=== PATIENT | female | born 1980 | race Caucasian/White ===

== ENCOUNTER → 2018-08-04 17:01 | Outpatient (CLI) | payer OTHER, SELFPAY ==
[2018-08-08 10:17] LABS: HPV APTIMA, High Risk Negative (Negative)
== END ==
PROVIDERS: Family Provider Family Medicine; PCP Family Medicine; Referring Provider Nurse Practitioner Women's Health; Visit Provider Nurse Practitioner Women's Health
DX: Z12.4 Encounter for screening for malignant neoplasm of cervix (principal)
CPT/HCPCS: 88175; G0145

== ENCOUNTER → 2019-02-08 | Outpatient (CLI) | payer OTHER, SELFPAY ==
[2019-02-07 11:24] VITALS: BMI 25.0
== END | disposition home or self-care (01) ==
PROVIDERS: Family Provider Family Medicine; PCP Family Medicine; Referring Provider Physician Assistant; Visit Provider Physician Assistant
DX: J02.9 Acute pharyngitis, unspecified (principal)
CPT/HCPCS: 87081

== ENCOUNTER → 2019-11-24 15:38 | Outpatient (CLI) | payer OTHER, SELFPAY ==
[2019-02-07 11:24] VITALS: BMI 25.0
[2019-11-05 15:35] VITALS: BMI 25.1
--- NOTE | 2019-11-24 15:39 | BI_ITS ---
MAMMOGRAPHY - BILATERAL SCREENING REASON FOR EXAM: Female, 38 years old. Routine annual screening examination. PERTINENT HISTORY: Non-contributory. TECHNIQUE: Digital bilateral breast bobbi (3D mammographic acquisition) in the CC and MLO projections. 2-D mediolateral oblique (MLO) and craniocaudad (CC) views of both breasts were obtained. CAD: Full Field Digital Mammography with Computer Added Detection was performed. COMPARISON: None. Baseline examination. FINDINGS: Breast Composition: The breasts are heterogeneously dense, which may obscure small masses. There are no dominant masses or suspicious calcifications. Benign appearing bilateral axillary lymph nodes. No other significant abnormalities are identified. There has been no significant change since the prior study. BI/SCREEN MAMM (CAD) W/BOBBI BILAT IMPRESSION: Stable bilateral screening mammogram. Yearly follow-up mammogram recommended. (A) ASSESSMENT CATEGORY: BIRADS Category 2: Benign. A letter regarding these results will be sent to the patient by the facility within 30 days. Approximately 10% of breast cancers are not detected by mammography. A normal mammogram should not delay biopsy of a clinically suspicious abnormality. [id number] Electronically Signed: Gaurav Bautista, at 8:28 EST , Service support ,
== END ==
PROVIDERS: Family Provider Family Medicine; PCP Family Medicine; Referring Provider Obstetrics & Gynecology; Visit Provider Obstetrics & Gynecology
DX: Z12.31 Encounter for screening mammogram for malignant neoplasm of breast (principal)
CPT/HCPCS: 77063; 77067

== ENCOUNTER → 2020-01-11 16:37 | Outpatient (CLI) | payer OTHER, SELFPAY ==
[2019-11-05 15:35] VITALS: BMI 25.1
--- NOTE | 2020-01-11 16:42 | RAD_ITS ---
STUDY: X-RAY - PARANASAL SINUSES REASON FOR EXAM: Female, 39 years old. Sinusitis, headaches, cough, congestion x 2 months. TECHNIQUE: 3 view(s) of the paranasal sinuses were obtained. COMPARISON: None. FINDINGS: Normal visualized frontal, ethmoidal and sphenoid sinuses. Mild right maxillary sinus disease. Normal visualized facial bones. Normal soft tissue structures. RAD/Sinuses min 3 Views IMPRESSION: Mild right maxillary sinus disease Electronically Signed: Nicola Cuevas DO at 9:13 EDT Tel , Service support ,
== END ==
PROVIDERS: PCP Family Medicine; Referring Provider Family Medicine; Visit Provider Family Medicine
DX: J32.9 Chronic sinusitis, unspecified (principal)
CPT/HCPCS: 70220

== ENCOUNTER → 2020-02-10 13:24 | Outpatient (CLI) | payer OTHER, SELFPAY ==
[2019-11-05 15:35] VITALS: BMI 25.1
--- NOTE | 2020-02-10 13:28 | CT_ITS ---
STUDY: CT MAXILLOFACIAL SINUSES REASON FOR EXAM: Female, 39 years old. SINUSITIS RADIATION DOSAGE (If Supplied By Facility): CTDIvol = ( 33.06 ) mGy, DLP = ( 833.85 ) mGycm TECHNIQUE: The patient was scanned in a multi detector CT scanner. High resolution axial imaging was performed without the administration of intravenous contrast material. Sagittal and coronal images were reconstructed. Individualized dose optimization techniques were used for this CT. COMPARISON: None. FINDINGS: FRONTAL SINUSES: Normal aeration, without mucosal inflammatory disease. ETHMOIDAL SINUSES: Normal aeration, without mucosal inflammatory disease. MAXILLARY SINUSES: There is a 1.1 cm x 1.5 cm mucosal retention cyst or polyp at the base of the left maxillary sinus with a mild degree of left maxillary sinus thickening. SPHENOIDAL SINUSES: Normal aeration, without mucosal inflammatory disease. There is patency of the bilateral maxillary infundibuli with normal uncinate processes, ethmoid bullae, and hiatus semilunaris. Normal bilateral middle turbinates. Normal bilateral inferior turbinates. Normal midline nasal septum. There is patency of the bilateral nasal airways. The visualized osseous structures are normal. The visualized bilateral orbital contents are normal. CT/Sinus/Facial Bone IMPRESSION: 1.1 cm x 1.5 cm mucosal retention cyst at the base of the left maxillary sinus with a mild degree of left maxillary mucosal thickening. Electronically Signed: Gaurav Bautista, at 14:31 EDT , Service support ,
== END ==
PROVIDERS: PCP Family Medicine; Referring Provider Otolaryngology; Visit Provider Otolaryngology
DX: J32.9 Chronic sinusitis, unspecified (principal); R51 Headache
CPT/HCPCS: 70486

== ENCOUNTER → 2020-11-07 16:52 | Outpatient (CLI) | payer OTHER, SELFPAY ==
[2020-11-07 15:34] VITALS: BMI 26.2
== END ==
PROVIDERS: PCP Family Medicine; Visit Provider Obstetrics & Gynecology
DX: R30.0 Dysuria (principal)
CPT/HCPCS: 87086; 87088

== ENCOUNTER → 2020-11-28 15:31 | Outpatient (CLI) | payer OTHER, SELFPAY ==
[2019-11-05 15:35] VITALS: BMI 25.1
[2020-11-07 15:34] VITALS: BMI 26.2
--- NOTE | 2020-11-28 15:33 | BI_ITS ---
MAMMOGRAPHY - BILATERAL SCREENING REASON FOR EXAM: Female, 39 years old. Routine annual screening examination. PERTINENT HISTORY: Non-contributory. TECHNIQUE: Digital bilateral breast bobbi (3D mammographic acquisition) in the CC and MLO projections. 2-D mediolateral oblique (MLO) and craniocaudad (CC) views of both breasts were obtained. CAD: Full Field Digital Mammography with Computer Added Detection was performed. COMPARISON: Comparison is made with prior study dated 11/24/2019. FINDINGS: Breast Composition: The breasts are heterogeneously dense, which may obscure small masses. There are no dominant masses or suspicious calcifications. Stable benign-appearing bilateral axillary ligament. No other significant abnormalities are identified. There has been no significant change since the prior study. BI/SCRN MAMM (CAD)W/BOBBI BILAT IMPRESSION: Stable bilateral screening mammogram. Yearly follow-up mammogram recommended. (A) ASSESSMENT CATEGORY: BIRADS Category 2: Benign. A letter regarding these results will be sent to the patient by the facility within 30 days. Approximately 10% of breast cancers are not detected by mammography. A normal mammogram should not delay biopsy of a clinically suspicious abnormality. [id number] Electronically Signed: Gaurav Bautista MD at 8:38 EST , Service support ,
== END ==
PROVIDERS: PCP Family Medicine; Referring Provider Obstetrics & Gynecology; Visit Provider Obstetrics & Gynecology
DX: Z12.31 Encounter for screening mammogram for malignant neoplasm of breast (principal)
CPT/HCPCS: 77063; 77067

== ENCOUNTER 2021-11-30 17:27 | Outpatient (CLI) | payer OTHER, SELFPAY ==
[2021-12-05 21:00] LABS: HPV APTIMA, High Risk Negative (Negative)
== END 2021-11-30 23:59 | disposition short-term general hospital (02) ==
LOC: LABSPEC 17:27
PROVIDERS: PCP Family Medicine; Visit Provider Obstetrics & Gynecology
DX: Z12.4 Encounter for screening for malignant neoplasm of cervix (principal)
CPT/HCPCS: 87624; 88175; G0145

== ENCOUNTER 2022-10-01 22:51 | Emergency (ER) | payer OTHER, SELFPAY ==
[2022-10-01 22:51] VITALS: BP 114/63; PULSE 73; RESP 18; TEMP 36.8; O2SAT 98; BMI 24.0
--- NOTE | 2022-10-01 23:23 | EDS_ITS ---
HPI History of Present Illness Chief Complaint: Eye Problem Informant: patient and spouse/S.O. Onset/Context/Timing Location: Right Eye Onset: Today (JPTA) Context: Sudden Onset Timing: Continuous Current Severity: Mild Maximum Severity: Moderate Worsened by: nothing Relieved by: nothing Associated Symptoms Associated Symptoms - Eyes: Foreign body sensation and - (discomfort) History of injury: Yes and Direct trauma Visual correction: Corrective contact lenses Narrative Narrative: Patient presents after an injury to her eye. 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 She states it tore her soft contact lens, which she pulled out of her eye, and has very little discomfort subsequently, can see an obvious injury in the mirror to the nasal aspect of her sclera/conjunctivae, she denies any other injury or vision change but admits that her contact is out and her vision is very poor without it and she has no glasses with her. Last tetanus was about 8 years ago she estimates, definitely not sooner. 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 Smoking Status: Never smoker alcohol intake: current alcohol intake frequency: holidays/special occasions only substance use type: does not use caffeine: No what type of physical activity do you participate in: none seatbelt use: always do you feel safe at home: Yes 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 [employer] ROS ROS ED Constitutional Constitutional ED: Denies chills or fever(s) Eyes Eyes: Reports as per HPI and eye pain ENT ENT ED: Denies ear pain, rhinorrhea or sore throat Neurologic Neurologic: Denies headache(s), paresthesias or weakness EXAM Physical Exam Const Vital Signs: 10/01/22 22:51 Temperature 98.3 F Temperature Source Temporal Pulse Rate 73 Respiratory Rate 18 Blood Pressure 114/63 Blood Pressure Mean 80 Pulse Ox 98 Oxygen Delivery Method Room Air Positive well nourished and well developed General Appearance ED: well developed and NAD HEENT atraumatic; Negative for tenderness Mouth ED: Yes oral and palatal mucosa normal and Yes lips normal Mouth: oral and palatal mucosa normal and lips normal Eyes PERRL and EOMs intact bilaterally Eyes Narrative: There is an obvious small contusion with erythema/injection locally to the conjunctivae/sclera nasal to the right cornea, OD. No foreign body seen. Eyelid everted. Evaluated with slit-lamp and fluorescein dye: Cornea atraumatic without signs of dye uptake. Anterior chamber deep and quiet. No hyphema or hypopyon. The nasal conjunctive a/sclera shows very small amounts of fine mcqueen debris, maybe 3 or 4 punctate areas, none of it moves with gentle swabbing with a sterile cotton swab. Negative Eligio sign. Neuro oriented x3, CN's II-XII intact bilaterally and gait normal Sensorium / Orientation: alert Skin Lesions: no lesions Rashes: no rashes MDM MDM MDM Narrative Medical decision making narrative: Patient was given tetracaine and then Ruben lens followed by half liter irrigation. The slit-lamp exam documented above was performed after the thorough irrigation. There is no residual foreign material including the patient's contact lens or any pieces of it. We will place bacitracin/neomycin ophthalmic into the eye for infection prophylaxis, and instructions for use for the next 2 or 3 days and follow-up. 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 Her tetanus was also updated. Discharge Plan Triage Chief Complaint: Eye Problem ED Provider: Levon Bowman Dx/Rx/DC Orders Clinical Impression: Contusion of right conjunctiva, Immunization, tetanus-diphtheria Instructions: ED Eye Contusion Prescriptions: No Action Mirena 20 mcg/24 hours (6 yrs) 52 mg intrauterine device 1 insert intrauterine ONCE Rx Instructions: as a single dose Primary Care Provider: Magalys Adan Referrals: Magalys Adan MD [Primary Care Provider] - Doctor,Your [Non-Staff] - 2 Days (your telecommunications technician) Activity Restrictions/Additional Instructions: Use the antibiotic ointment thin ribbon to your right eye 3 times daily for the next 2 or 3 days. Disposition Disposition: Home, Self Care
[2022-10-01] MEDS: Diphth,Pertuss(Acell),Tet Vac 0.5 ML Vial IM (23:30)
[2022-10-01] MEDS: Fluorescein 1 MG STRIP 1 STRIP RIGHT EYE (23:30)
[2022-10-01] MEDS: Tetracaine 0.5% Ophthalmic Bottle 2 DRP RIGHT EYE (23:31)
[2022-10-02] MEDS: Neomycin/Bacitracin/Polymyxin Opth. Ointment 1 APPLIC RIGHT EYE (00:33)
== END 2022-10-02 00:35 | disposition home or self-care (01) ==
PROVIDERS: Emergency Provider Emergency Medicine; PCP Family Medicine; Visit Provider Emergency Medicine
DX: S05.11XA Contusion of eyeball and orbital tissues, right eye, initial encounter (principal); Z23 Encounter for immunization; X58.XXXA Exposure to other specified factors, initial encounter
CPT/HCPCS: 90715; 96372; 99284; J7030

== ENCOUNTER → 2022-12-12 | Outpatient (CLI) | payer OTHER, SELFPAY ==
--- NOTE | 2022-12-12 14:59 | BI_ITS ---
MAMMOGRAPHY - BILATERAL SCREENING REASON FOR EXAM: Female, 41 years old. Routine annual screening examination. PERTINENT HISTORY: Non-contributory. Remote left breast biopsy. TECHNIQUE: Digital bilateral breast bobbi (3D mammographic acquisition) in the CC and MLO projections. 2-D mediolateral oblique (MLO) and craniocaudad (CC) views of both breasts were obtained. CAD: Full Field Digital Mammography with Computer Added Detection was performed. COMPARISON: Comparison is made with prior examination dated 11/28/2020 and 11/24/2019. FINDINGS: Breast Composition: The breasts are heterogeneously dense, which may obscure small masses. There are no dominant masses or suspicious calcifications. Stable benign-appearing bilateral axillary lymph nodes. No other significant abnormalities are identified. There has been no significant change since the prior study. BI/SCRN MAMM (CAD)W/BOBBI BILAT IMPRESSION: Stable bilateral screening mammogram. Yearly follow-up mammogram recommended. (A) ASSESSMENT CATEGORY: BIRADS Category 2: Benign. A letter regarding these results will be sent to the patient by the facility within 30 days. Approximately 10% of breast cancers are not detected by mammography. A normal mammogram should not delay biopsy of a clinically suspicious abnormality. [id number] Electronically Signed: Gaurav Bautista MD at 15:43 EST ,
== END | disposition home or self-care (01) ==
LOC: OPBI 14:58
PROVIDERS: PCP Family Medicine; Referring Provider Obstetrics & Gynecology; Visit Provider Obstetrics & Gynecology
DX: Z12.31 Encounter for screening mammogram for malignant neoplasm of breast (principal)
CPT/HCPCS: 77063; 77067

== ENCOUNTER → 2023-07-01 | Outpatient (CLI) | payer OTHER, SELFPAY | END | disposition home or self-care (01) | PROVIDERS: PCP Family Medicine; Visit Provider Family Medicine | DX: N39.0 Urinary tract infection, site not specified (principal) | CPT/HCPCS: 87086 ==

== ENCOUNTER → 2023-08-02 | Outpatient (CLI) | payer OTHER, SELFPAY ==
[2023-08-02 11:15] LABS: Erythrocyte Sedimentation Rate 1 mm/hr (0-30)
[2023-08-02 11:42] LABS: CRP < 2.90 mg/L (0.0-3.0); Rheumatoid Factor < 10.0 IU/mL (<15)
[2023-08-05 13:07] LABS: ANTINUCLEAR ANTIBODIES DIRECT Negative (Negative)
== END | disposition home or self-care (01) ==
LOC: LAB 10:42
PROVIDERS: PCP Family Medicine; Referring Provider Family Medicine; Visit Provider Family Medicine
DX: M25.50 Pain in unspecified joint (principal)
CPT/HCPCS: 36415; 85652; 86038; 86140; 86431

== ENCOUNTER → 2023-12-30 | Outpatient (CLI) | payer OTHER, SELFPAY ==
--- NOTE | 2023-12-30 16:04 | RAD_ITS ---
INDICATION: cough EXAMINATION/TECHNIQUE: X-RAY - XR Chest 2 Views COMPARISON: None. FINDINGS: LINES/DEVICES: None. LUNGS: No pulmonary edema or focal airspace consolidation. No sizable pleural effusion. No pneumothorax detected. MEDIASTINUM AND CARDIOVASCULAR STRUCTURES: Heart size within normal limits. Mediastinal contours unremarkable. BONES AND SOFT TISSUES: No acute findings. RAD/Chest PA and Lateral IMPRESSION: No radiographic evidence of acute cardiopulmonary disease. Electronically Signed: Dominic Perez MD at 4:21 EST ,
== END | disposition home or self-care (01) ==
LOC: MTRAD 16:02
PROVIDERS: PCP Family Medicine; Referring Provider Family Medicine; Visit Provider Family Medicine
DX: R05.3 Chronic cough (principal)
CPT/HCPCS: 71046

== ENCOUNTER → 2023-12-31 | Outpatient (CLI) | payer OTHER, SELFPAY | END | disposition home or self-care (01) | LOC: LABSPEC 12:54 | PROVIDERS: PCP Family Medicine; Referring Provider Family Medicine; Visit Provider Family Medicine | DX: R05.3 Chronic cough (principal) | CPT/HCPCS: 87070; 87205 ==

== ENCOUNTER → 2024-03-20 | Outpatient (CLI) | payer OTHER, SELFPAY ==
[2024-03-20 17:41] LABS: Absolute Lymphocyte Count 2.05 X10^3/uL (0.83-4.51); Absolute Neutrophil Count 4.8 X10^3/uL (2.0-7.7); Basophil# 0.04 X10^3/uL; Basophil% 0.5 % (0-1); Eosinophil# 0.12 X10^3/uL; Eosinophils% 1.6 % (0-5); Hematocrit 41.5 % (37-47); Hemoglobin 13.5 g/dL (12.0-15.0); Lymphocyte # 2.05 X10^3/ul (0.83-4.51); Lymphocyte % 27.5 % (19-41); Mean Corp Hgb Conc 32.5 g/dL (32-36); Mean Corpuscular Hgb 26.6 pg (27.0-32.0); Mean Corpuscular Volume 81.9 fL (81-99); Mean Platelet Vol. 9.4 fl (6.2-12.0); Monocyte# 0.46 X10^3/uL; Monocyte% 6.2 % (0-10); NRBC Flagged by Analyzer 0 % (0-5); Neutrophil # 4.76 X10^3/uL (2.7-7.7); Neutrophil % 63.9 % (47-70); Platelet Count 303 K/mm3 (150-450); RBC Distribution Width SD 38.4 fl (35.1-43.9); Red Blood Count 5.07 M/mm3 (4.2-5.4); White Blood Count 7.5 K/mm3 (4.4-11.0)
[2024-03-20 18:02] LABS: AST(SGOT) 17 U/L (15-37); Alanine Aminotransfer ALT/SGPT 24 U/L (13-56); Albumin, Serum 3.8 g/dL (3.2-5.0); Alkaline Phosphatase 66 U/L (45-117); Anion Gap 5 (5-15); BUN 13 mg/dL (7-18); BUN/Creat Ratio 14.9 RATIO (10-20); Calcium,Total 9.2 mg/dL (8.5-10.1); Chloride 108 mmol/L (98-107); Creatinine, Serum 0.87 mg/dL (0.55-1.02); EST Glomerular Filtration Rate 75 mL/min (>60); Est Glom Filt Rate - Afr Amer 90 mL/min (>60); Glucose 105 mg/dL (74-106); Potassium 3.7 mmol/L (3.5-5.1); Protein, Total 7.8 g/dL (6.4-8.2); Sodium Level 140 mmol/L (136-145); Thyroid Stim Hormone (TSH) 1.55 uIU/mL (0.358-3.74)
== END | disposition home or self-care (01) ==
LOC: MTLAB 16:16
PROVIDERS: PCP Family Medicine; Referring Provider Family Medicine; Visit Provider Family Medicine
DX: L65.9 Nonscarring hair loss, unspecified (principal)
CPT/HCPCS: 80053; 82157; 82627; 84403; 84443; 85025; 82626

== ENCOUNTER → 2025-07-27 | Outpatient (CLI) | payer OTHER, SELFPAY ==
--- NOTE | 2025-07-27 14:45 | BI_ITS ---
EXAM: SCRN MAMM (CAD)W/BOBBI BILAT DATE: 07/27/2025 CLINICAL HISTORY: F, Age 44 y/o , SCREENING No family history. Remote left breast biopsy. TECHNIQUE: Procedure Code: [id number] Modality: MG Procedure: SCRN MAMM (CAD)W/BOBBI BILAT COMPARISON: Prior exam(s) dated December 12, 2022.. FINDINGS: TISSUE DENSITY: The breasts are heterogeneously dense, which may obscure small masses. Bilateral Breast Mammographic Findings: No significant masses, calcifications or other abnormalities are identified. Stable bilateral fat containing axillary lymph nodes. No suspicious masses, areas of developing architectural distortion, or suspicious calcifications. There has been no significant interval change. BI/SCRN MAMM (CAD)W/BOBBI BILAT IMPRESSION: Stable bilateral screening mammogram. OVERALL FINAL ASSESSMENT BI-RADS 2: BENIGN RECOMMENDATION: Routine annual follow-up in 1 Year Additional Recommendation none A letter with findings and recommendations will be mailed to the patient. Reading Location: [place] [id number]
== END | disposition home or self-care (01) ==
PROVIDERS: PCP Family Medicine; Referring Provider Nurse Practitioner Family; Visit Provider Nurse Practitioner Family
DX: Z12.31 Encounter for screening mammogram for malignant neoplasm of breast (principal)
CPT/HCPCS: 77063; 77067

== ENCOUNTER → 2025-08-26 | Outpatient (CLI) | payer OTHER, SELFPAY ==
[2025-08-27 18:08] LABS: Immunoglobulin A 183 mg/dL (87-352)
== END | disposition home or self-care (01) ==
LOC: LAB 11:02
PROVIDERS: PCP Family Medicine; Referring Provider Student in an Organized Health Care Education/Training Program; Visit Provider Student in an Organized Health Care Education/Training Program
DX: K21.9 Gastro-esophageal reflux disease without esophagitis (principal)
CPT/HCPCS: 36415; 82784; 83516; 86255

== ENCOUNTER 2025-08-31 05:30 | Day surgery (SDC) | payer OTHER, SELFPAY ==
[2025-08-31] VITALS (8 sets, daily range): BP systolic 84–106; BP diastolic 67–73; PULSE 78–94; RESP 16–18; TEMP 36.2–36.4; O2SAT 95–100; BMI 25.3
--- OUTSIDE RECORDS SUMMARY | 2025-08-31 05:34 | XMS RPT_ITS | CCD ---
Author Organization [facility] CliniSynm Care Team Providers Care Metal Sprayer Protective Coating Name Role Phone Dr. Magalys Adan Primary Care Provider Dr. Magalys Adan Referring Provider GUNNER Martinez Attending Provider Dr. Magalys Adan Primary Care Provider Dr. Magalys Adan Referring Provider GUNNER Martinez Attending Provider Dr. Mary Ellen Chavez Attending Provider [phone] Dr. Magalys Adan Primary Care Provider Dr. Magalys Adan Referring Provider Dr. Mary Ellen Chavez Attending Provider Dr. Chris Khoury MD Primary Care Physician Assessment, Health Risk Attending Physician Unav ailable Assessment, Health Risk Referring Provider Unava ilable Megan BILINGUAL CUSTOMER SERVICE SPECIALIST-C, Amy Attending Physician [phone] Megan BILINGUAL CUSTOMER SERVICE SPECIALIST-C, Amy Referring Provider Dr. Chris Khoury MD Referring Provider Qiana Melendez Attending Physician [phone] Qiana Camp Attending Unavailable Qiana Camp Referring Unavailable Chris Khoury Primary Care Unavailable Chris Khoury Primary Care Unavailable Assessment, Health Risk Attending Unavaila ble Assessment, Health Risk Referring Unavaila ble Chris Khoury Primary Care Unavailable Megan BILINGUAL CUSTOMER SERVICE SPECIALIST, Amy Attending Unavailable Megan BILINGUAL CUSTOMER SERVICE SPECIALIST, Amy Referring Unavailable Chris Khoury Primary Care Unavailable Chris Khoury Referring Unavailable Friend, Fadi Attending Unavailable Chris Khoury Primary Care Unavailable Chris Khoury Referring Unavailable Qiana Camp Attending Unavailable Allergies Allergy Classification Reported Allergen(s) Allergy Type Date of Onset Reaction(s) Facility (1 source) Gluten Drug allergy (disorder) 08-27-2025 [facility] Repository Medications Current Medications Medication Drug Class(es) Dates Sig (Normalized) Sig (Original) famotidine 20 mg oral tablet (2 sources) Histamine-2 Receptor Antagonist Start: 07-19-2025 take 1 tablet by mouth once daily Famotidine 20 mg tablet Active 20 mg PO daily July 19, 2025 12:00am Complies with drug therapy levonorgestrel 0.785711 mg/hr intrauterine system (8 sources) Progestin, Progestin-containi ng Intrauterine Device Start: 08-21-2021 Levonorgestrel (Mirena) 20 mcg/24 hours (6 yrs) 52 mg intrauterine device Active 1 NMA INTRA-UTER ONCE August 21, 2021 12:00am as a single dose Complies with drug therapy Start: 08-21-2021 Levonorgestrel (Mirena) 20 mcg/24 hours (6 yrs) 52 mg intrauterine device Active 1 INSERT INTRA-UTER ONCE August 20, 2021 11:00pm as a single dose polyethylene glycol 3350 408265 mg / potassium chloride 2970 mg / sodium bicarbonate 6740 mg / sodium chloride 5860 mg / sodium sulfate 69494 mg powder for oral solution (2 sources) Osmotic Laxative Start: 08-06-2025 Peg 3350-Elec trolytes (Golytely) 236-22.74-6.74 -5.86 gram recon soln Active 240 mL PO Q10M 4000 0 August 06, 2025 12:00am until fecal effluent is clear Complies with drug therapy Completed/Discontinued Medications Medication Drug Class(es) Dates Sig (Normalized) Sig (Original) acetaminophen 325 mg / oxyCODONE hydrochloride 5 mg oral tablet (8 sources) Opioid Agonist Start: 05-01-2015 End: 08-04-2018 Oxycodone-Acetamino phen 1 TABLET tablet Discontinued 2 {tbl} PO EVERY 4 HOURS NEEDED as needed for Moderate-Severe pain 15 0 May 01, 2015 12:00am August 04, 2018 3:21pm Start: 05-01-2015 End: 08-04-2018 take 2 tablets by mouth every four hours as needed Oxycodone-Acetaminophen Discontinued 2 TABLET PO EVERY 4 HOURS NEEDED April 30, 2015 11:00pm August 04, 2018 2:21pm cephalexin 500 mg oral capsule (6 sources) Cephalosporin Antibacterial Start: 01-12-2023 End: 01-22-2023 take 1 capsule by mouth twice daily at mealtime Cephalexin 500 mg capsule Discontinued 500 mg PO TWICE A DAY 20 10 0 January 12, 2023 1:00am January 21, 2023 12:00am January 22, 2023 12:04am strep take with food multivitamin capsule (6 sources) Start: 02-07-2019 End: 11-07-2020 take 1 capsule by mouth once daily multivitamin capsule Discontinued 1 CAP PO DAILY February 07, 2019 12:00am November 07, 2020 4:35pm Start: 02-07-2019 End: 11-07-2020 take 1 capsule by mouth once daily multivitamin capsule Discontinued 1 CAP PO DAILY February 06, 2019 11:00pm November 07, 2020 3:35pm Multivitamin capsule (2 sources) Start: 02-07-2019 End: 11-07-2020 Multivitamin capsule Discontinued 1 NMA PO DAILY February 07, 2019 12:00am November 07, 2020 4:35pm naproxen 250 mg oral tablet (8 sources) Nonsteroidal Anti-inflammatory Drug Start: 05-01-2015 End: 08-04-2018 take 250-500 mg by mouth every eight hours as needed for pain Naproxen 250 MG tablet Discontinued 250 - 500 mg PO EVERY 8 HOURS NEEDED as needed for MILD PAIN 30 0 May 01, 2015 12:00am August 04, 2018 3:21pm Vit,Michael 42-Evsf-Qbhtg 1 TABLET tablet (2 sources) Start: 12-30-2014 End: 08-04-2018 Vit,Michael 59-Fbwv-Uhhzh 1 TABLET tablet Discontinued 1 {tbl} PO DAILY December 30, 2014 1:00am August 04, 2018 3:21pm Vit,Sqmv02-Vcbk-Dvr ic (6 sources) Start: 12-30-2014 End: 08-04-2018 take 1 tablet by mouth once daily Vit,Ryua45-Fzbm-Be lic Discontinued 1 TABLET PO DAILY December 30, 2014 1:00am August 04, 2018 3:21pm Start: 12-30-2014 End: 08-04-2018 take 1 tablet by mouth once daily Vit,Ctyi95-Eetm-Wwvso Discontinued 1 TABLET PO DAILY December 30, 2014 12:00am August 04, 2018 2:21pm Problems Problem Classification Problem Date Documented Da te Episodic/Chronic Abdominal pain (8 sources) Abdominal pain; Translations: [Unspecified abdominal pain] 08-04-2018 Episodic Esophageal disorders (6 sources) Gastroesophageal reflux disease; Translations: [Gastro-esophageal reflux disease without esophagitis] Onset: 5 08-06-2025 Chronic Genitourinary symptoms and ill-defined conditions (8 sources) Asymptomatic microscopic hematuria; Translations: [Asymptomatic microscopic hematuria] 12-03-2022 Episodic Comment on above: await culture. if ne gative recommend urine cytology and ct abden/pelvis Immunizations and screening for infectious disease (8 sources) Requires tetanus and diphtheria vaccination; Translations: [Encounter for immunization] 10-10-2022 Episodic Other complications of (8 sources) Acute appendicitis; Translations: [Diseases of the digestive system complicating , unspecified trimester] 08-04-2018 Episodic Other gastrointestinal disorders (2 sources) Abdominal bloating; Translations: [Abdominal distension (gaseous)] 08-06-2025 Episodic Other screening for suspected conditions (not mental disorders or infectious disease) (3 sources) Patient encounter status; Translations: [Encounter for screening for malignant neoplasm of colon] Onset: 5 08-06-2025 Episodic Other upper respiratory infections (6 sources) Streptococcal sore throat; Translations: [Streptococcal pharyngitis] 01-12-2023 Episodic Superficial injury; contusion (8 sources) Contusion of ocular adnexa and periocular tissues; Translations: [Contusion of eyeball and orbital tissues, right eye, initial encounter] 10-10-2022 Episodic Results Test Name Value Interpretation Reference Range Facility Celiac Disease Profileon ENDOMYSIAL IGA Negative Normal Negative [facility] Comment on above: Performed By: #### L 3410.2400 #### [facility] [address] [place], [address] IMMUNOGLOB A QN 183 mg/dL Normal 87-352 [facility] Comment on above: Result Comment: Perf ormed at: CB - [facility] [address] [id number] Humanities Instructor: Waqas Curiel PhD, Phone: [phone] Performed By: #### L 3410.2400 #### [facility] [address] [place], [place], [address] tTG IGA <2 Normal 0-3 [facility] Comment on above: Result Comment: Nega tive 0 - 3 Weak Positive 4 - 10 Positive >10 Tissue Transglutaminase (tTG) has been identified as the endomysial antigen. Studies have demonstr- ated that endomysial IgA antibodies have over 99% specificity for gluten sensitive enteropathy. Performed By: #### L 3410.2400 #### [facility] [address] [place], [place], [address] Gastroenterology Visit Repor ton 08-06-2025 Gastroenterology Visit Report [facility] Gastroenterology [address] [facility] [place] [address] OFFICE VISIT Date of Service: 08/06/25 MR#: [id number] Acct: [id number] Name: MARA VAZ Rep #: [id number] : 1980 Provider: GUNNER Salmon Age/Sex: 44/F [place] [facility] Status: Signed Intake Vital Signs 12/12/23 15:33 Height 5 ft 4 in Intake Visit Reasons: possible egd Chief Complaint: Abdominal bloating Allergies No Known Allergies Allergy (Verified 08/06/25 14:15) Medications ???Medication ???Instructions ???Recorded ???Confirmed ???Type levonorgestrel (Mirena) 1 insert intrauterine ONCE 1 07/19/25 History famotidine 20 mg tablet 20 mg PO QDAY 07/19/25 07/19/25 Hi story peg 3350-electrolytes 236 240 ml PO Q10M #4,000 mL 08/06/25 08/06/25 Rx gram-22.74 gram-6.74 gram-5.86 gram solution (Golytely) PFSH Medical History GERD (gastroesophageal reflux disease) Has 2 children Surgical History H/O breast biopsy History of appendectomy Family History Father Bladder cancer Social History number of children: 2 current occupational status: employed 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 Patient here today for evaluation of her GI symptoms. Patient has heartburn, bloating and constipation. Symptoms started back in 2019 with heartburn and she was started on famotidine daily which helped however last summer her symptoms became worse. She has significant bloating after eating anything with gluten in it. For the most part she avoids all gluten containing foods. She has never been tested for celiac disease. Patient has had constipation since high school. She takes MiraLAX daily which allows her to have a bowel movement daily or every other day. If patient was not taking MiraLAX she thinks she may have a bowel movement once per week. She has never had a colonoscopy or EGD before. ROS Const Constitutional: No fatigue, fever(s) or weight change ENT ENT: No difficulty swallowing Gastro GI: Positive for abdominal pain, bloating, constipation and excessive flatus; No belching, change in bowel habits, change in stool character, coffee ground emesis, cramping, diarrhea, heartburn, difficulty swallowing, feeling full early, incontinent of stools, Vomiting blood/hematemesis, Blood in stool, loose stools, Black,tarry stools, nausea/dyspepsia, pain with swallowing, vomiting or other Musc Musculoskeletal: No joint pain Skin Skin: No yellowing of the eye or itchy eyes Psych Psychiatric: No anxiety and No depression Endo Endocrine: No fatigue or weight change Aller/Imm Allergy/Immunologic: No itchy eyes Jose/Lymp Hematologic/Lymphati c: No easy bleeding or easy bruising Exam Const General: cooperative, healthy appearing and comfortable Nutritional Appearance: average body habitus Orientation: alert HENMT Head: normal to inspection Ears: hearing grossly normal bilaterally Eyes General: appearance normal, both eyes and all related structures Neck Neck: normal visual inspection Chest Chest palpation inspection: normal inspection of the chest Resp Effort Inspection: normal respiratory effort Cardio Rate: regular rate Rhythm: regular rhythm GI Inspection: normal to inspection Auscultation: normal bowel sounds Palpation: soft and nontender Assessment and Plan Assessment and Plan (1) GERD (gastroesophageal reflux disease): Status: Acute Plan: Mara is a 44-year-old female patient here today for evaluation of bloating, heartburn and constipation. She has had heartburn since 2019 but it worsened last summer. She takes famotidine as needed for control of this but has never been on a PPI. Patient's bloating is typically associated with eating gluten. She eats mostly gluten-free diet at this point. Will order celiac panel and she will have EGD with biopsy. I did advise that she will need to eat gluten for either these tests to be accurate. Patient has had constipation since high school and takes MiraLAX daily. Patient has never had a screening colonoscopy and will be scheduled for this with her EGD. I have provided samples of Linzess 72 mcg daily for her to trial. If patient h (more content not included)... Normal [facility] Breast imaging reportOrdered By: Gaurav Bautista on 07-28-2025 Study report [facility] Imaging Services [address] [place], [place] [address] SCRN MAMM (CAD)W/BOBBI BILAT MR#: [id number] Acct: [id number] Name: MARA VAZ Rep #: [id number] : 1980 F 44 From: Mukesh Bautista MD PCP: Dr. Chris Khoury MD Status: BHARGAV GREENE Study:SCRN MAMM (CAD)W/BOBBI BILAT Date of Exa m: 07/27/25 Exam# [id number] Ordering Dr: Jennifer Guzman BILINGUAL CUSTOMER SERVICE SPECIALIST BILINGUAL CUSTOMER SERVICE SPECIALIST-C EXAM: SCRN MAMM (CAD)W/BOBBI BILAT DATE: 07/27/2025 CLINICAL HISTORY: F, Age 44 y/o , SCREENING No family history. Remote left breast biopsy. TECHNIQUE: Procedure Code: BISMWCADBTOM Modality: MG Procedure: SCRN MAMM (CAD)W/BOBBI BILAT COMPARISON: Prior exam(s) dated December 12, 2022.. FINDINGS: TISSUE DENSITY: The breasts are heterogeneously dense, which may obscure small masses. Bilateral Breast Mammographic Findings: No significant masses, calcifications or other abnormalities are identified. Stable bilateral fat containing axillary lymph nodes. No suspicious masses, areas of developing architectural distortion, or suspicious calcifications. There has been no significant interval change. BI/SCRN MAMM (CAD)W/BOBBI BILAT IMPRESSION: Stable bilateral screening mammogram. OVERALL FINAL ASSESSMENT BI-RADS 2: BENIGN RECOMMENDATION: Routine annual follow-up in 1 Year Additional Recommendation none A letter with findings and recommendations will be mailed to the patient. Reading Location: [place] [address] CC: BILINGUAL CUSTOMER SERVICE SPECIALIST-C Amy Guzman; Dr. Chris Khoury MD ~ Technical Business Analyst: Signed [facility] SCRN MAMM (CAD)W/BOBBI BILATo n 07-27-2025 SCRN MAMM (CAD)W/BOBBI BILAT [facility] Imaging Services [address] [place] [id number] SCRN MAMM (CAD)W/BOBBI BILAT MR#: [id number] Acct: [id number] Name: MARA VAZ Rep #: [id number] : 1980 F 44 From: Gaurav marshall MD PCP: Dr. Chris Khoury MD Status: REG CLI Study: SCRN MAMM (CAD)W/BOBBI BILAT Date of Exam: 07/06 01/26 Exam# [id number] Ordering Dr: Amy Guzman NP BILINGUAL CUSTOMER SERVICE SPECIALIST-C EXAM: SCRN MAMM (CAD)W/BOBBI BILAT DATE: 07/27/2025 CLINICAL HISTORY: F, Age 44 y/o , SCREENING No family history. Remote left breast biopsy. TECHNIQUE: Procedure Code: BISMWCADBTOM Modality: MG Procedure: SCRN MAMM (CAD)W/BOBBI BILAT COMPARISON: Prior exam(s) dated December 12, 2022.. FINDINGS: TISSUE DENSITY: The breasts are heterogeneously dense, which may obscure small masses. Bilateral Breast Mammographic Findings: No significant masses, calcifications or other abnormalities are identified. Stable bilateral fat containing axillary lymph nodes. No suspicious masses, areas of developing architectural distortion, or suspicious calcifications. There has been no significant interval change. BI/SCRN MAMM (CAD)W/BOBBI BILAT IMPRESSION: Stable bilateral screening mammogram. OVERALL FINAL ASSESSMENT BI-RADS 2: BENIGN RECOMMENDATION: Routine annual follow-up in 1 Year Additional Recommendation none A letter with findings and recommendations will be mailed to the patient. Reading Location: [place] [address] CC: ANAY Guzman; Dr. Chris Khoury MD Technical Business Analyst: Signed Normal [facility] Absolute lymphocyte countOrd ered By: HEALTH ASSESSMENT on 06-29-2025 Lymphocytes Auto (Unsp spec) [#/Vol] 2.05 10*3/uL 0.83-4.51 [facility] Absolute neutrophil countOrd ered By: HEALTH ASSESSMENT on 06-29-2025 Neutrophils (Bld) [#/Vol] 3.8 10*3/uL 2.0-7.7 [facility] Absolute nucleated red blood cell countOrdered By: HEALTH ASSESSMENT on 06-29-2025 Nucleated RBC (Bld) [#/Vol] 0.00 10*3/uL 0-5 [facility] Anion gap in Serum or Plasma Ordered By: HEALTH ASSESSMENT on 06-29-2025 Anion gap [Moles/Vol] 11 mmol/L 5-15 [facility] BUN/creatinine ratioOrdered By: HEALTH ASSESSMENT on 06-29-2025 Urea nitrogen/Creatinine [Mass ratio] 17.6 mg/mg 10-20 [facility] Bilirubin Test strip Ql (U)O rdered By: HEALTH ASSESSMENT on 06-29-2025 Bilirubin Ql (U) Negative Negative [facility] Bilirubin directOrdered By: HEALTH ASSESSMENT on 06-29-2025 Bilirubin.direct [Mass/Vol] 0.13 mg/dL 0.00-0.30 [facility] Bilirubin, totalOrdered By: HEALTH ASSESSMENT on 06-29-2025 Bilirubin [Mass/Vol] 0.30 mg/dL 0.00-1.30 [facility] CBC, Employeeon 06-29-2025 Absolute Lymph 2.05 X10 3/uL Normal 0.83-4.51 [facility] Comment on above: Performed By: #### L 100.0200, L400.0100, L500.2900 #### [facility] [address] [place], [address] Absolute Neut 3.8 X10 3/uL Normal 2.0-7.7 [facility] Comment on above: Performed By: #### L 100.0200, L400.0100, L500.2900 #### [facility] [address] [place], [address] Basophils/100 WBC (Bld) 0.6 % Normal 0-1 [facility] Comment on above: Performed By: #### L 100.0200, L400.0100, L500.2900 #### [facility] [address] [place], [address] Eosinophils/100 WBC (Bld) 2.6 % Normal 0-5 [facility] Comment on above: Performed By: #### L 100.0200, L400.0100, L500.2900 #### [facility] [address] [place], [address] Erythrocyte distribution width (RBC) [Ratio] 12.4 % Normal 11.6-14.6 [facility] Comment on above: Performed By: #### L 100.0200, L400.0100, L500.2900 #### [facility] [address] [place], [address] Hematocrit (Bld) [Volume fraction] 40.4 % Normal 37-47 [facility] Comment on above: Performed By: #### L 100.0200, L400.0100, L500.2900 #### [facility] [address] [place], [address] Hemoglobin (Bld) [Mass/Vol] 13.7 g/dL Normal 12.0-15.0 [facility] Comment on above: Performed By: #### L 100.0200, L400.0100, L500.2900 #### [facility] [address] [place], [address] Lymphocytes/100 WBC (Bld) 31.3 % Normal 19-41 [facility] Comment on above: Performed By: #### L 100.0200, L400.0100, L500.2900 #### [facility] [address] [place], [address] MCH (RBC) [Entitic mass] 28.7 pg Normal 27.0-32.0 [facility] Comment on above: Performed By: #### L 100.0200, L400.0100, L500.2900 #### [facility] [address] [place], [address] MCHC (RBC) [Mass/Vol] 33.9 g/dL Normal 32-36 [facility] Comment on above: Performed By: #### L 100.0200, L400.0100, L500.2900 #### [facility] [address] [place], [address] MCV (RBC) [Entitic vol] 84.7 fL Normal 81-99 [facility] Comment on above: Performed By: #### L 100.0200, L400.0100, L500.2900 #### [facility] [address] [place], [address] Monocytes/100 WBC (Bld) 7.2 % Normal 0-10 [facility] Comment on above: Performed By: #### L 100.0200, L400.0100, L500.2900 #### [facility] [address] [place], [address] Neutrophils/100 WBC (Bld) 57.8 % Normal 47-70 [facility] Comment on above: Performed By: #### L 100.0200, L400.0100, L500.2900 #### [facility] [address] [place], [address] NRBC # 0.00 10 3/uL Normal 0-5 [facility] Comment on above: Performed By: #### L 100.0200, L400.0100, L500.2900 #### [facility] [address] [place], [address] Nucleated RBC (Bld) [#/Vol] 0 10*3/uL Normal 0-5 [facility] Comment on above: Performed By: #### L 100.0200, L400.0100, L500.2900 #### [facility] [address] [place], [address] Platelet mean volume (Bld) [Entitic vol] 9.4 fL Normal 6.2-12.0 [facility] Comment on above: Performed By: #### L 100.0200, L400.0100, L500.2900 #### [facility] [address] [place], [address] Platelets (Bld) [#/Vol] 286 10*3/uL Normal 150-450 [facility] Comment on above: Performed By: #### L 100.0200, L400.0100, L500.2900 #### [facility] [address] [place], [address] RBC (Bld) [#/Vol] 4.77 10*6/uL Normal 4.2-5.4 [facility] Comment on above: Performed By: #### L 100.0200, L400.0100, L500.2900 #### [facility] [address] [place], [address] RDW SD 37.9 fl Normal 35.1-43.9 [facility] Comment on above: Performed By: #### L 100.0200, L400.0100, L500.2900 #### [facility] [address] [place], [address] WBC (Bld) [#/Vol] 6.5 10*3/uL Normal 4.4-11.0 [facility] Comment on above: Performed By: #### L 100.0200, L400.0100, L500.2900 #### [facility] [address] [place], [address] Calculated very low density lipoprotein (VLDL) cholesterol measurementOrdered By: HEALTH ASSESSMENT on 06-29-2025 Calculated very low density lipoprotein (VLDL) cholesterol measurement 14 mg/dL 5-40 [facility] Carbon dioxide, total [Moles /volume] in Central venous bloodOrdered By: HEALTH ASSESSMENT on 06-29-2025 CO2 [Moles/Vol] 25.2 mmol/L 21.0-32.0 [facility] Chloride assayOrdered By: HE ALTH ASSESSMENT on 06-29-2025 Chloride [Moles/Vol] 104 mmol/L 98-108 [facility] Employee Profileon LDH 194 U/L Normal 84-246 [facility] Comment on above: Result Comment: Hemo lysis present, Results??could be affected. ?? Performed By: #### L 100.0200, L400.0100, L500.2900 #### [facility] [address] [place], [address] Phosphate [Mass/Vol] 3.0 mg/dL Normal 2.7-4.5 [facility] Comment on above: Performed By: #### L 100.0200, L400.0100, L500.2900 #### [facility] [address] [place], [place], [address] URIC 4.0 mg/dL Normal 2.6-6.0 [facility] Comment on above: Result Comment: The drugs N-Acetylcysteine and Metamizole may falsely depress this assay. Performed By: #### L 100.0200, L400.0100, L500.2900 #### [facility] [address] [place], [place], [address] Erythrocyte distribution wid th ratioOrdered By: HEALTH ASSESSMENT on 06-29-2025 Erythrocyte distribution width (RBC) [Ratio] 12.4 % 11.6-14.6 [facility] Erythrocyte distribution wid th standard deviationOrdered By: HEALTH ASSESSMENT on 06-29-2025 Erythrocyte distribution width (RBC) [Ratio] 37.9 fl 35.1-43.9 [facility] Glomerular filtration rate ( GFR) estimation/1.73 sq m using serum, plasma, or whole bOrdered By: HEALTH ASSESSMENT on 06-29-2025 GFR/1.73 sq M.predicted among non-blacks MDRD (S/P/Bld) [Vol rate/Area] 109 mL/min/{1.73_m2} >60 [facility] Comment on above: mL/min/1.73m2 CKD-EP I Creatinine Equation (2020) Hematocrit Auto (Bld) [Volum e fraction]Ordered By: HEALTH ASSESSMENT on 06-29-2025 Hematocrit (Bld) [Volume fraction] 40.4 % 37-47 [facility] Hemoglobin measurementOrdere d By: HEALTH ASSESSMENT on 06-29-2025 Hemoglobin (Bld) [Mass/Vol] 13.7 g/dL 12.0-15.0 [facility] Ketones Test strip Ql (U)Ord ered By: HEALTH ASSESSMENT on 06-29-2025 Ketones Ql (U) Negative Negative [facility] LDL calc ser/plasOrdered By: HEALTH ASSESSMENT on 06-29-2025 Cholesterol in LDL [Mass/Vol] 105 mg/dL [facility] Comment on above: Kibghleyem=143-606 m g/dL & Higher Hczv=552 mg/dL or greaterFriedwald Equation for LDL-C Laboratory - Chemistry and C hemistry - challengeOrdered By: HEALTH ASSESSMENT on 06-29-2025 AST [Catalytic activity/Vol] 24 U/L <32 [facility] Lactate dehydrogenase (LDH) measurementOrdered By: HEALTH ASSESSMENT on 06-29-2025 LDH [Catalytic activity/Vol] 194 U/L 84-246 [facility] Comment on above: Hemolysis present, R esults could be affected. MCV (mean corpuscular volume ) determinationOrdered By: HEALTH ASSESSMENT on 06-29-2025 MCV (RBC) [Entitic vol] 84.7 fL 81-99 [facility] Mean corpuscular hemoglobin (MCH) determinationOrdered By: HEALTH ASSESSMENT on 06-29-2025 MCH (RBC) [Entitic mass] 28.7 pg 27.0-32.0 [facility] Mean corpuscular hemoglobin concentration (MCHC) determinationOrdered By: HEALTH ASSESSMENT on 06-29-2025 MCHC (RBC) [Mass/Vol] 33.9 g/dL 32-36 [facility] Mean platelet volume determi nationOrdered By: HEALTH ASSESSMENT on 06-29-2025 Platelet mean volume (Bld) [Entitic vol] 9.4 fL 6.2-12.0 [facility] Neutrophil percentageOrdered By: HEALTH ASSESSMENT on 06-29-2025 Neutrophils/100 WBC (Bld) 57.8 % 47-70 [facility] Nitrite Test strip Ql (U)Ord ered By: HEALTH ASSESSMENT on 06-29-2025 Nitrite Ql (U) Negative Negative [facility] Nucleated red blood cell per centageOrdered By: HEALTH ASSESSMENT on 06-29-2025 Nucleated RBC/100 WBC (Bld) [Ratio] 0 % 0-5 [facility] Platelet countOrdered By: HE ALTH ASSESSMENT on 06-29-2025 Platelets (Bld) [#/Vol] 286 10*3/uL 150-450 [facility] Potassium measurement (mass/ volume)Ordered By: HEALTH ASSESSMENT on 06-29-2025 Potassium (Unsp spec) [Mass/Vol] 4.5 mmol/L 3.3-5.1 [facility] Protein Test strip Ql (U)Ord ered By: HEALTH ASSESSMENT on 06-29-2025 Protein Ql (U) 15 mg/dl High Negative [facility] RBC Auto (Bld) [#/Vol]Ordere d By: HEALTH ASSESSMENT on 06-29-2025 RBC (Bld) [#/Vol] 4.77 10*6/uL 4.2-5.4 [facility] Screening total cholesterol/ high density lipoprotein (HDL) cholesterol ratioOrdered By: HEALTH ASSESSMENT on 06-29-2025 Cholesterol.total/Choles terol in HDL [Mass ratio] 3.15 {ratio} [facility] Serum creatinine measurement (mass/volume)Ordered By: HEALTH ASSESSMENT on 06-29-2025 Creatinine [Mass/Vol] 0.68 mg/dL Low 0.70-1.20 [facility] Serum globulin measurementOr dered By: HEALTH ASSESSMENT on 06-29-2025 Globulin (S) [Mass/Vol] 2.8 g/dL 2.2-4.2 [facility] Serum glucose measurement (m ass/volume)Ordered By: HEALTH ASSESSMENT on 06-29-2025 Glucose [Mass/Vol] 87 mg/dL 70-99 [facility] Serum or plasma alanine mejia otransferase (ALT) measurementOrdered By: HEALTH ASSESSMENT on 06-29-2025 ALT [Catalytic activity/Vol] 29 U/L <35 [facility] Serum or plasma albumin keesha urement (mass/volume)Ordered By: HEALTH ASSESSMENT on 06-29-2025 Albumin [Mass/Vol] 4.2 g/dL 3.5-5.0 [facility] Serum or plasma albumin/glob ulin mass ratioOrdered By: HEALTH ASSESSMENT on 06-29-2025 Albumin/Globulin [Mass ratio] 1.5 {ratio} 0.9-2.4 [facility] Serum or plasma alkaline deni sphatase measurementOrdered By: HEALTH ASSESSMENT on 06-29-2025 ALP [Catalytic activity/Vol] 57 U/L 35-104 [facility] Serum or plasma calcium keesha urement (mass/volume)Ordered By: HEALTH ASSESSMENT on 06-29-2025 Calcium [Mass/Vol] 9.1 mg/dL 7.6-11.0 [facility] Serum or plasma cholesterol in HDL measurement (mass/volume)Ordered By: HEALTH ASSESSMENT on 06-29-2025 Cholesterol in HDL [Mass/Vol] 56 mg/dL >40 [facility] Comment on above: National Cholesterol Education Program (NCEP) guidelines:<40 mg/dL: Low HDL-cholesterol (major risk factor for CHD)>= 60 mg/dL: High HDL-cholesterol (negative risk factor for CHD)HDL-cholesterol is affected by a number of factors, e.g. smoking, exercise, hormones, sex and age. Serum or plasma cholesterol measurement (mass/volume)Ordered By: HEALTH ASSESSMENT on 06-29-2025 Cholesterol [Mass/Vol] 175 mg/dL <201 [facility] Comment on above: Cholesterol level, D esirable <200 mg/dLBorderline high cholesterol 200-239 mg/dLHigh cholesterol >=240 mg/dLRecommendations of the NCEP Adult Treatment Panel for the following risk-cutoff thresholds for the [place] population. Serum or plasma urea nitroge n measurement (mass/volume)Ordered By: HEALTH ASSESSMENT on 06-29-2025 Urea nitrogen [Mass/Vol] 12 mg/dL 4-19 [facility] Serum or plasma uric acid me asurement (mass/volume)Ordered By: HEALTH ASSESSMENT on 06-29-2025 Urate [Mass/Vol] 4.0 mg/dL 2.6-6.0 [facility] Comment on above: The drugs N-Acetylcy steine and Metamizole may falsely depress this assay. Sodium levelOrdered By: [facility] ASSESSMENT on 06-29-2025 Sodium [Moles/Vol] 140 mmol/L 133-145 [facility] Total proteinOrdered By: [facility] ASSESSMENT on 06-29-2025 Protein [Mass/Vol] 7.0 g/dL 5.9-8.4 [facility] Triglycerides measurementOrd ered By: HEALTH ASSESSMENT on 06-29-2025 Triglyceride [Mass/Vol] 71 mg/dL <199 [facility] Comment on above: The drugs N-Acetylcy steine and Metamizole may falsely depress this assay. Normal range: <150 mg/dLBorderline High: 150-199 mg/dLHigh: 200-499 mg/dLVery High: >500 mg/dL Urinalysis, Employeeon 06-29 BILIRUBIN URINE Negative Normal Negative [facility] Comment on above: Order Comment: Urine , Random Performed By: #### L 100.0200, L400.0100, L500.2900 #### [facility] [address] [place], [address] Clarity (U) Sl. Cloudy Normal Clear [facility] Comment on above: Order Comment: Urine , Random Performed By: #### L 100.0200, L400.0100, L500.2900 #### [facility] [address] [place], [address] Color (U) Yellow Normal Yellow [facility] Comment on above: Order Comment: Urine , Random Performed By: #### L 100.0200, L400.0100, [id number] #### [facility] [address] [place], [address] GLUCOSE, UR Normal Normal Normal [facility] Comment on above: Order Comment: Urine , Random Performed By: #### L 100.0200, L400.0100, [id number] #### [facility] [address] [place], [address] KETONE UR Negative Normal Negative [facility] Comment on above: Order Comment: Urine , Random Performed By: #### L 100.0200, L400.0100, [id number] #### [facility] [address] [place], [address] LEUK ESTERASE 100 /ul Abnormal Negative [facility] Comment on above: Order Comment: Urine , Random Performed By: #### L 100.0200, L400.0100, [id number] #### [facility] [address] [place], [address] Nitrite Ql (U) Negative Normal Negative [facility] Comment on above: Order Comment: Urine , Random Performed By: #### L 100.0200, L400.0100, [id number] #### [facility] [address] [place], [address] OCCULT BLOOD-UR 10 /ul Abnormal Negative [facility] Comment on above: Order Comment: Urine , Random Performed By: #### L 100.0200, L400.0100, L500.2900 #### [facility] [address] [place], [address] pH UR 7.0 Normal 5.0 - 8.0 [facility] Comment on above: Order Comment: Urine , Random Performed By: #### L 100.0200, L400.0100, L500.2900 #### [facility] [address] [place], [address] PROT DIPSTX 15 mg/dl Abnormal Negative [facility] Comment on above: Order Comment: Urine , Random Performed By: #### L 100.0200, L400.0100, [id number] #### [facility] [address] [place], [address] SP.GR. DIPSTX 1.015 Normal 1.002-1.030 [facility] Comment on above: Order Comment: Urine , Random Performed By: #### L 100.0200, L400.0100, [id number] #### [facility] [address] [place], [address] UROBILI Normal Normal Normal [facility] Comment on above: Order Comment: Urine , Random Performed By: #### L 100.0200, L400.0100, L500.2900 #### [facility] [address] [place], [address] Urine clarityOrdered By: HELuciano [facility] ASSESSMENT on 06-29-2025 Clarity (U) Sl. Cloudy Clear [facility] Urine color determinationOrd ered By: HEALTH ASSESSMENT on 06-29-2025 Color (U) Yellow Yellow [facility] Urine glucose detectionOrder ed By: HEALTH ASSESSMENT on 06-29-2025 Glucose Ql (U) Normal mg/dl Normal [facility] Urine leukocyte esterase det ection by dipstickOrdered By: HEALTH ASSESSMENT on 06-29-2025 Leukocyte esterase Test strip Ql (U) 100 /ul High Negative [facility] Urine pHOrdered By: HEALTH A SSESSMENT on 06-29-2025 pH (U) 7.0 [pH] 5.0 - 8.0 [facility] Urine specific gravity measu rementOrdered By: [facility] ASSESSMENT on 06-29-2025 Specific gravity (U) [Rel density] 1.015 1.002-1.030 [facility] Urine urobilinogen measureme ntOrdered By: HEALTH ASSESSMENT on 06-29-2025 Urobilinogen Ql (U) Normal mg/dl Normal [facility] White blood cell (WBC) count Ordered By: [facility] ASSESSMENT on 06-29-2025 WBC (Bld) [#/Vol] 6.5 10*3/uL 4.4-11.0 [facility] Gram stain for investigation of transfusion reactionOrdered By: Magalys Adan on 12-31-2023 Microscopic observation Gram stain Nom (Unsp spec) [facility] Microbial respiratory cultur eOrdered By: Magalys Adan on 12-31-2023 Bacteria identified Respiratory culture Nom (Unsp spec) or Staphylococcus aureus isolated. [facility] Erythrocyte sedimentation ra teOrdered By: Magalys Adan on 08-02-2023 ESR (Bld) [Velocity] 1 mm/h 0-30 [facility] No Panel InformationOrdered By: Magalys Adan on 08-02-2023 Anti-Nuclear Antibody Screen Negative Negative [facility] Comment on above: Performed at: [address] [id number] Director: Waqas Curiel PhD, Phone: [phone] Serum or plasma C reactive p rotein measurement (mass/volume)Ordered By: Magalys Adan on 08-02-2023 CRP [Mass/Vol] mg/L 0.0-3.0 [facility] Comment on above: C-Reactive Protein ( CRP) provides useful information for thediagnosis, therapy and monitoring of inflammatory processesand associated diseases. For the evaluation of Relative Riskfor Cardiovascular Disease, a High Sensitivity CRP (HSCRP)should be ordered. Serum rheumatoid factor dete ctionOrdered By: Magalys Adan on 08-02-2023 Rheumatoid factor Ql (S) < 10.0 IU/mL <15 [facility] Absolute lymphocyte countOrd ered By: HEALTH ASSESSMENT on 07-26-2023 Lymphocytes Auto (Unsp spec) [#/Vol] 2.19 10*3/uL 0.83-4.51 [facility] Absolute reticulocyte countO rdered By: HEALTH ASSESSMENT on 07-26-2023 Reticulocytes (Bld) [#/Vol] 0.00 10*3/uL 0-5 [facility] Basophil percentageOrdered B y: HEALTH ASSESSMENT on 07-26-2023 Basophil percentage 3.2 mg/dL 2.5-4.9 [facility] Bilirubin [Mass/Vol] 0.60 mg/dL 0.20-1.00 [facility] Comment on above: For patients on eltr ombopag therapy, use of Dimension [place] TBIL is not recommended. Chloride [Moles/Vol] 105 mmol/L 98-107 [facility] Cholesterol [Mass/Vol] 169 mg/dL <200 [facility] Comment on above: <200 mg/dL Desirable 200-240 mg/dL Borderline >240 mg/dL High Risk Glucose [Mass/Vol] 101 mg/dL 74-106 [facility] Comment on above: Fasting Glucose resu lt from 100 to 125 mg/dL suggests IMPAIRED HOMEOSTASIS per A.D.A. criteria. LDH [Catalytic activity/Vol] 159 U/L 84-246 [facility] Neutrophils (Bld) [#/Vol] 4.5 10*3/uL 2.0-7.7 [facility] Potassium [Moles/Vol] 4.0 mmol/L 3.5-5.1 [facility] Protein [Mass/Vol] 7.3 g/dL 6.4-8.2 [facility] Sodium [Moles/Vol] 136 mmol/L 136-145 [facility] Triglyceride [Mass/Vol] 48 mg/dL <199 [facility] Comment on above: The drugs N-Acetylcy steine and Metamizole may falsely depress this assay.Serum Triglycerides Reference Interval Normal <150 mg/dL Borderline high 150 - 199 mg/dL High 200 - 499 mg/dL Very High > or = 500 mg/dL WBC (Bld) [#/Vol] 7.3 10*3/uL 4.4-11.0 [facility] Bilirubin Test strip Ql (U)O rdered By: HEALTH ASSESSMENT on 07-26-2023 Bilirubin Ql (U) Negative Negative [facility] Blood erythrocytes count (nu mber/volume)Ordered By: HEALTH ASSESSMENT on 07-26-2023 RBC (Bld) [#/Vol] 4.90 10*6/uL 4.2-5.4 [facility] Blood hemoglobin measurement (mass/volume)Ordered By: HEALTH ASSESSMENT on 07-26-2023 Hemoglobin (Bld) [Mass/Vol] 13.9 g/dL 12.0-15.0 [facility] Blood platelet mean volumeOr dered By: HEALTH ASSESSMENT on 07-26-2023 Platelet mean volume (Bld) [Entitic vol] 9.1 fL 6.2-12.0 [facility] Determination of erythrocyte mean corpuscular volume (MCV)Ordered By: HEALTH ASSESSMENT on 07-26-2023 MCV (RBC) [Entitic vol] 85.9 fL 81-99 [facility] Direct bilirubinOrdered By: HEALTH ASSESSMENT on 07-26-2023 Bilirubin.direct [Mass/Vol] 0.17 mg/dL 0.00-0.30 [facility] Hematocrit Auto (Bld) [Volum e fraction]Ordered By: HEALTH ASSESSMENT on 07-26-2023 Hematocrit (Bld) [Volume fraction] 42.1 % 37-47 [facility] Ketones Test strip Ql (U)Ord ered By: HEALTH ASSESSMENT on 07-26-2023 Ketones Ql (U) Negative Negative [facility] - Chemistry and C hemistry - challengeOrdered By: HEALTH ASSESSMENT on 07-26-2023 ALP [Catalytic activity/Vol] 53 U/L 45-117 [facility] ALT [Catalytic activity/Vol] 29 U/L 13-56 [facility] Cholesterol.total/Choles terol in HDL [Mass ratio] 3.10 {ratio} [facility] CO2 [Moles/Vol] 28.0 mmol/L 21.0-32.0 [facility] Globulin (S) [Mass/Vol] 3.5 g/dL 2.2-4.2 [facility] Urea nitrogen/Creatinine [Mass ratio] 17.1 mg/mg 10-20 [facility] - Hematology and Cell countsOrdered By: HEALTH ASSESSMENT on 07-26-2023 Erythrocyte distribution width (RBC) [Entitic vol] 38.8 fL 35.1-43.9 [facility] Erythrocyte distribution width (RBC) [Ratio] 12.4 % 11.6-14.6 [facility] MCH (RBC) [Entitic mass] 28.4 pg 27.0-32.0 [facility] Nucleated RBC/100 WBC (Bld) [Ratio] 0 % 0-5 [facility] MCHC Auto (RBC) [Mass/Vol]Or dered By: HEALTH ASSESSMENT on 07-26-2023 MCHC (RBC) [Mass/Vol] 33.0 g/dL 32-36 [facility] Nitrite Test strip Ql (U)Ord ered By: HEALTH ASSESSMENT on 07-26-2023 Nitrite Ql (U) Negative Negative [facility] No Panel InformationOrdered By: HEALTH ASSESSMENT on 07-26-2023 Estimated GFR (MDRD) Amer 116 mL/min >60 [facility] Comment on above: GFR Calc Estimated GFR (MDRD) Non-Af Amer 96 mL/min >60 [facility] Comment on above: Non- GFR Calc Platelets bldOrdered By: ZOE [facility] ASSESSMENT on 07-26-2023 Platelets (Bld) [#/Vol] 260 10*3/uL 150-450 [facility] Protein Test strip Ql (U)Ord ered By: HEALTH ASSESSMENT on 07-26-2023 Protein Ql (U) Negative Negative [facility] Segmented neutrophils/100 WB C Auto (Bld)Ordered By: HEALTH ASSESSMENT on 07-26-2023 Segmented neutrophils/100 WBC (Bld) 61.9 % 47-70 [facility] Serum or plasma albumin keesha urement (mass/volume)Ordered By: HEALTH ASSESSMENT on 07-26-2023 Albumin [Mass/Vol] 3.8 g/dL 3.2-5.0 [facility] Serum or plasma albumin/glob ulin mass ratioOrdered By: HEALTH ASSESSMENT on 07-26-2023 Albumin/Globulin [Mass ratio] 1.1 {ratio} 0.9-2.4 [facility] Serum or plasma calcium keesha urement (mass/volume)Ordered By: HEALTH ASSESSMENT on 07-26-2023 Calcium [Mass/Vol] 8.6 mg/dL 8.5-10.1 [facility] Serum or plasma cholesterol in HDL measurement (mass/volume)Ordered By: HEALTH ASSESSMENT on 07-26-2023 Cholesterol in HDL [Mass/Vol] 55 mg/dL >40 [facility] Comment on above: The drugs N-Acetylcy steine and Metamizole may falsely depress this assay. Reference Range HDL <40 mg/dL Low HDL Cholesterol HDL >or= 60 mg/dL High HDL Cholesterol Serum or plasma cholesterol in VLDL measurement (mass/volume)Ordered By: HEALTH ASSESSMENT on 07-26-2023 Cholesterol in VLDL [Mass/Vol] 10 mg/dL 5-40 [facility] Serum or plasma creatinine m easurement (mass/volume)Ordered By: HEALTH ASSESSMENT on 07-26-2023 Creatinine [Mass/Vol] 0.70 mg/dL 0.55-1.02 [facility] Comment on above: The validity of the calculated GFR & GFRAA in patients over 70 years has not been determined. Clinical correlation is essential. Serum or plasma low density lipoprotein (LDL) cholesterol measurement (mass/volume)Ordered By: HEALTH ASSESSMENT on 07-26-2023 Cholesterol in LDL [Mass/Vol] 104 mg/dL 0-130 [facility] Serum or plasma urea nitroge n measurement (mass/volume)Ordered By: HEALTH ASSESSMENT on 07-26-2023 Urea nitrogen [Mass/Vol] 12 mg/dL 7-18 [facility] Serum or plasma uric acid me asurement (mass/volume)Ordered By: HEALTH ASSESSMENT on 07-26-2023 Urate [Mass/Vol] 4.6 mg/dL 2.6-6.0 [facility] Comment on above: The drugs N-Acetylcy steine and Metamizole may falsely depress this assay. Thin prep Papanicolaou smear with manual screeningOrdered By: HEALTH ASSESSMENT on 07-26-2023 Thin prep Papanicolaou smear with manual screening 12 U/L 15-37 [facility] Thin prep Papanicolaou smear with manual screening 3 5-15 [facility] Urine blood detectionOrdered By: HEALTH ASSESSMENT on 07-26-2023 RBC Ql (U) Negative Negative [facility] Urine clarityOrdered By: HEA [facility] ASSESSMENT on 07-26-2023 Clarity (U) Clear Clear [facility] Urine color determinationOrd ered By: HEALTH ASSESSMENT on 07-26-2023 Color (U) Yellow Yellow [facility] Urine glucose detectionOrder ed By: HEALTH ASSESSMENT on 07-26-2023 Glucose Ql (U) Normal mg/dl Normal [facility] Urine leukocyte esterase det ection by dipstickOrdered By: HEALTH ASSESSMENT on 07-26-2023 Leukocyte esterase Test strip Ql (U) 25 /ul Negative [facility] Urine pHOrdered By: HEALTH A SSESSMENT on 07-26-2023 pH (U) 6.5 [pH] 5.0 - 8.0 [facility] Urine specific gravity measu rementOrdered By: HEALTH ASSESSMENT on 07-26-2023 Specific gravity (U) [Rel density] 1.010 1.002-1.030 [facility] Urobilinogen Auto test strip Ql (U)Ordered By: HEALTH ASSESSMENT on 07-26-2023 Urobilinogen Ql (U) Normal mg/dl Normal [facility] Culture, urineOrdered By: Kerry Adan on 07-01-2023 Bacteria identified Cx Nom (U) Culture exhibits no growth. [facility] - Microbiology an d Antimicrobial susceptibilityon 10-12-2022 SARS-CoV-2 (COVID-19) RNA JENNIFER+probe Ql (Unsp spec) Detected [facility] Absolute lymphocyte counton 07-23-2022 Lymphocytes Auto (Unsp spec) [#/Vol] 2.29 10*3/uL 0.83-4.51 [facility] Work Phone: Absolute reticulocyte counto n 07-23-2022 Reticulocytes (Bld) [#/Vol] 0.00 10*3/uL 0-5 [facility] Work Phone: Basophil percentageon 2021 Basophil percentage 3.2 mg/dL 2.5-4.9 [facility] Work Phone: Bilirubin [Mass/Vol] 0.50 mg/dL 0.20-1.00 [facility] Work Phone: Comment on above: For patients on eltr ombopag therapy, use of Dimension [place] TBIL is not recommended. Chloride [Moles/Vol] 104 mmol/L 98-107 [facility] Work Phone: Cholesterol [Mass/Vol] 146 mg/dL <200 [facility] Work Phone: Comment on above: <200 mg/dL Desirable 200-240 mg/dL Borderline >240 mg/dL High Risk Glucose [Mass/Vol] 93 mg/dL 74-106 [facility] Work Phone: Neutrophils (Bld) [#/Vol] 4.7 10*3/uL 2.0-7.7 [facility] Work Phone: Potassium [Moles/Vol] 3.7 mmol/L 3.5-5.[facility]: Protein [Mass/Vol] 7.3 g/dL 6.4-8.2 [facility] Work Phone: Sodium [Moles/Vol] 138 mmol/L 136-145 [facility] Work Phone: Triglyceride [Mass/Vol] 53 mg/dL <199 [facility] Work Phone: Comment on above: The drugs N-Acetylcy steine and Metamizole may falsely depress this assay.Serum Triglycerides Reference Interval Normal <150 mg/dL Borderline high 150 - 199 mg/dL High 200 - 499 mg/dL Very High > or = 500 mg/dL WBC (Bld) [#/Vol] 7.7 10*3/uL 4.4-11.0 [facility] Work Phone: Bilirubin Test strip Ql (U)o n 07-23-2022 Bilirubin Ql (U) Negative Negative [facility] Work Phone: Blood erythrocytes count (nu mber/volume)on 07-23-2022 RBC (Bld) [#/Vol] 4.71 10*6/uL 4.2-5.4 [facility] Work Phone: Blood hemoglobin measurement (mass/volume)on 07-23-2022 Hemoglobin (Bld) [Mass/Vol] 13.2 g/dL 12.0-15.0 [facility] Work Phone: Blood platelet mean volumeon 07-23-2022 Platelet mean volume (Bld) [Entitic vol] 9.3 fL 6.2-12.0 [facility] Work Phone: Determination of erythrocyte mean corpuscular volume (MCV)on 07-23-2022 MCV (RBC) [Entitic vol] 84.7 fL 81-99 [facility] Work Phone: Direct bilirubinon 2 Bilirubin.direct [Mass/Vol] 0.15 mg/dL 0.00-0.30 [facility] Work Phone: Hematocrit Auto (Bld) [Volum e fraction]on 07-23-2022 Hematocrit (Bld) [Volume fraction] 39.9 % 37-47 [facility] Work Phone: Ketones Test strip Ql (U)on 07-23-2022 Ketones Ql (U) Negative Negative [facility] Work Phone: Laboratory - Chemistry and C hemistry - challengeon 07-23-2022 ALP [Catalytic activity/Vol] 55 U/L 45-117 [facility] Work Phone: ALT [Catalytic activity/Vol] 22 U/L 13-56 [facility] Work Phone: Cholesterol.total/Choles terol in HDL [Mass ratio] 3.00 {ratio} [facility] Work Phone: CO2 [Moles/Vol] 28.0 mmol/L 21.0-32.0 [facility] Work Phone: Globulin (S) [Mass/Vol] 3.6 g/dL 2.2-4.2 [facility] Work Phone: Urea nitrogen/Creatinine [Mass ratio] 20.3 mg/mg 10-20 [facility] Work Phone: Laboratory - Hematology and Cell countson 07-23-2022 Erythrocyte distribution width (RBC) [Entitic vol] 38.1 fL 35.1-43.9 [facility] Work Phone: Erythrocyte distribution width (RBC) [Ratio] 12.3 % 11.6-14.6 [facility] Work Phone: MCH (RBC) [Entitic mass] 28.0 pg 27.0-32.0 [facility] Work Phone: Nucleated RBC/100 WBC (Bld) [Ratio] 0 % 0-5 [facility] Work Phone: MCHC Auto (RBC) [Mass/Vol]on 07-23-2022 MCHC (RBC) [Mass/Vol] 33.1 g/dL 32-36 [facility] Work Phone: Nitrite Test strip Ql (U)on 07-23-2022 Nitrite Ql (U) Negative Negative [facility] Work Phone: No Panel Informationon 07-23 Estimated GFR (MDRD) Amer 110 mL/min >60 [facility] Work Phone: Comment on above: GFR Calc Estimated GFR (MDRD) Non-Af Amer 91 mL/min >60 [facility] Work Phone: Comment on above: Non- GFR Calc Platelets bldon 07-23-2022 Platelets (Bld) [#/Vol] 305 10*3/uL 150-450 [facility] Work Phone: Protein Test strip Ql (U)on 07-23-2022 Protein Ql (U) Negative Negative [facility] Work Phone: Segmented neutrophils/100 WB C Auto (Bld)on 07-23-2022 Segmented neutrophils/100 WBC (Bld) 60.8 % 47-70 [facility] Work Phone: Serum or plasma albumin keesha urement (mass/volume)on 07-23-2022 Albumin [Mass/Vol] 3.7 g/dL 3.2-5.0 [facility] Work Phone: Serum or plasma albumin/glob ulin mass ratioon 07-23-2022 Albumin/Globulin [Mass ratio] 1.0 {ratio} 0.9-2.4 [facility] Work Phone: Serum or plasma calcium keesha urement (mass/volume)on 07-23-2022 Calcium [Mass/Vol] 8.6 mg/dL 8.5-10.1 [facility] Work Phone: Serum or plasma cholesterol in HDL measurement (mass/volume)on 07-23-2022 Cholesterol in HDL [Mass/Vol] 49 mg/dL >40 [facility] Work Phone: Comment on above: The drugs N-Acetylcy steine and Metamizole may falsely depress this assay. Reference Range HDL <40 mg/dL Low HDL Cholesterol HDL >or= 60 mg/dL High HDL Cholesterol Serum or plasma cholesterol in VLDL measurement (mass/volume)on 07-23-2022 Cholesterol in VLDL [Mass/Vol] 11 mg/dL 5-40 [facility] Work Phone: Serum or plasma creatinine m easurement (mass/volume)on 07-23-2022 Creatinine [Mass/Vol] 0.74 mg/dL 0.55-1.02 [facility] Work Phone: Comment on above: The validity of the calculated GFR & GFRAA in patients over 70 years has not been determined. Clinical correlation is essential. Serum or plasma low density lipoprotein (LDL) cholesterol measurement (mass/volume)on 07-23-2022 Cholesterol in LDL [Mass/Vol] 86 mg/dL 0-130 [facility] Work Phone: Serum or plasma urea nitroge n measurement (mass/volume)on 07-23-2022 Urea nitrogen [Mass/Vol] 15 mg/dL 7-18 [facility] Work Phone: Serum or plasma uric acid me asurement (mass/volume)on 07-23-2022 Urate [Mass/Vol] 4.9 mg/dL 2.6-6.0 [facility] Work Phone: Comment on above: The drugs N-Acetylcy steine and Metamizole may falsely depress this assay. Thin prep Papanicolaou smear with manual screeningon 07-23-2022 Thin prep Papanicolaou smear with manual screening 15 U/L 15-37 [facility] Work Phone: Thin prep Papanicolaou smear with manual screening 6 5-15 [facility] Work Phone: Thin prep Papanicolaou smear with manual screening 178 U/L 84-246 [facility] Work Phone: Urine blood detectionon 07-05 RBC Ql (U) Negative Negative [facility] Work Phone: Urine clarityon 07-23-2022 Clarity (U) Clear Clear [facility] Work Phone: Urine color determinationon 07-23-2022 Color (U) Yellow Yellow [facility] Work Phone: Urine glucose detectionon Glucose Ql (U) Normal mg/dl Normal [facility] Work Phone: Urine leukocyte esterase det ection by dipstickon 07-23-2022 Leukocyte esterase Test strip Ql (U) Negative Negative [facility] Work Phone: Urine pHon 07-23-2022 pH (U) 6.5 [pH] 5.0 - 8.0 [facility] Work Phone: Urine specific gravity measu rementon 07-23-2022 Specific gravity (U) [Rel density] 1.010 1.002-1.030 [facility] Work Phone: Urobilinogen Auto test strip Ql (U)on 07-23-2022 Urobilinogen Ql (U) Normal mg/dl Normal [facility] Work Phone: Laboratory - Microbiology an d Antimicrobial susceptibilityon 07-02-2022 SARS-CoV-2 (COVID-19) RNA JENNIFER+probe Ql (Unsp spec) Not detected [facility] Work Phone: No Panel Informationon 07-02 POC Nasal Swab Influenza A,B Not detected [facility] Work Phone: POC Nasal Swab RSV Not detected [facility] [place] Work Phone: Vital Signs Date Time Vital Sign Value Performing Clinician Faci lity 12-12-2023 15:33-0500 Body height 162.[address] Magalys Adan Work Phone: [facility] 12-12-2023 15:25-0500 Body mass index (BMI) [Ratio] 25.4 kg/m2 Dr. Magalys Adan Work Phone: [facility] 12-12-2023 15:25-0500 Body weight 67.[address] Magalys Adan Work Phone: [facility] 12-12-2023 15:25-0500 Diastolic blood pressure 78 mm[Hg] Dr. Magalys Adan Work Phone: [facility] 12-12-2023 15:25-0500 Systolic blood pressure 113 mm[Hg] Dr. Magalys Adan Work Phone: [facility] 12-03-2022 15:11-0500 Body height 162.[address] Magalys Adan Work Phone: [facility] 12-03-2022 15:11-0500 Body mass index (BMI) [Ratio] 24.3 kg/m2 Dr. Magalys Adan Work Phone: [facility] 12-03-2022 15:11-0500 Body weight 64.[address] Magalys Adan Work Phone: [facility] 12-03-2022 15:11-0500 Diastolic blood pressure 72 mm[Hg] Dr. Magalys Adan Work Phone: [facility] 12-03-2022 15:11-0500 Systolic blood pressure 112 mm[Hg] Dr. Magalys Adan Work Phone: [facility] 10-01-2022 22:51-0500 Body height 162.[address] Magalys Adan Work Phone: [facility] Work Phone: 10-01-2022 22:51-0500 Body mass index (BMI) [Ratio] 24 kg/m2 Dr. Magalys Adan Work Phone: [facility] 10-01-2022 22:51-0500 Body temperature 98.3 [degF] Dr. Magalys Adan Work Phone: [facility] 10-01-2022 22:51-0500 Body weight 63.[address] Magalys Adan Work Phone: [facility] 10-01-2022 22:51-0500 Diastolic blood pressure 63 mm[Hg] Dr. Magalys Adan Work Phone: [facility] 10-01-2022 22:51-0500 Heart rate 73 /min Dr. Magalys Adan Work Phone: [facility] 10-01-2022 22:51-0500 Respiratory rate 18 /min Dr. Magalys Adan Work Phone: [facility] 10-01-2022 22:51-0500 SaO2% (BldA) [Mass fraction] 98 % Dr. Magalys Adan Work Phone: [facility] 10-01-2022 22:51-0500 Systolic blood pressure 114 mm[Hg] Dr. Magalys Adan Work Phone: [facility] Encounters Encounter Date Encounter Type Care Provider Facility Start: 08-31-2025 ambulatory Chris Khoury Facilit y:[facility] Start: 08-26-2025 ambulatory Qiana Cantu ty:[facility] Start: 08-06-2025 End: 08-06-2025 Patient encounter procedure Qiana MARTINO -[facility] Work Phone: Start: 08-06-2025 End: 08-06-[address] Chris Khoury MD Work Phone: -[facility] Start: 07-27-2025 End: 07-27-[address] Chris Khoury MD Work Phone: -[facility] Start: 07-27-2025 End: 07-27-2025 Patient encounter procedure Amy CUEVA -[facility] Work Phone: Start: 07-27-2025 End: 07-27-2025 ambulatory Chris Khoury Facility:[facility] Start: 06-29-2025 Registered [employer] [facility] K [facility]ESSMENT -Employee Health Start: 06-29-2025 ambulatory Chris Khoury Facilit y:[facility] Start: 12-31-2023 End: 12-31-[address] Magalys Adan Work Phone: [facility] Work Phone: Start: 12-31-2023 End: 12-31-[address] Magalys Adan Work Phone: [facility], Specimen Work Phone: Start: 12-30-2023 End: 12-30-[address] Magalys Adan Work Phone: [facility] Work Phone: Start: 12-30-2023 End: 12-30-[address] Magalys Adan Work Phone: [facility] [place] Work Phone: Start: 12-12-2023 End: 12-12-[address] Magalys Adan Work Phone: [facility] Work Phone: Start: 08-02-2023 End: 08-02-2023 [facility] Start: 08-02-2023 End: 08-02-[address] [facility] Work Phone: Start: 07-26-2023 Registered Referred [facility] Start: 07-01-2023 End: 07-01-2023 ambulatory [facility] Work Phone: Start: 07-01-2023 End: 07-01-2023 [facility] Start: 12-12-2022 End: 12-12-[address] Magalys Adan Work Phone: [facility] Work Phone: Start: 12-12-2022 End: 12-12-[address] Magalys Adan Work Phone: [facility] Start: 12-03-2022 End: 12-03-[address] Magalys Adan Work Phone: [facility] [place] Start: 10-12-2022 End: 10-12-[address] Magalys Adan Work Phone: [facility] Start: 10-01-2022 End: 10-02-2022 Emergency department patient visit Dr. Magalys Adan Work Phone: [facility] Start: 07-23-[address] Magalys haynes Work Phone: [facility] Start: 07-02-2022 End: 07-02-[address] Magalys Adan Work Phone: [facility] Procedures Date Procedure Procedure Detail Performing Clinician Start: 07-27-2025 Screening mammography Ratna Khoury MD Work Phone: Start: 06-29-2025 Serum inorganic phos phate measurement Dr. Chris Khoury MD Work Phone: Start: 06-29-2025 Urnls dip stick/tabl et reagent auto microscopy Dr. Chris Khoury MD Work Phone: Start: 12-31-2023 Bacteria identificat ion test Dr. Magalys Adan Work Phone: Start: 12-31-2023 Investigation of transfusion reaction Dr. Magalys Adan Work Phone: Start: 12-31-2023 Res[address] micro[address] l culture Dr. Magalys Adan Work Phone: Start: 12-30-2023 Plain chest X-ray Dr. Luciano Adan Work Phone: Start: 07-01-2023 Urine culture Start: 12-12-2022 Screening mammography Ratna Adan Work Phone: Plan of Treatment Date Care Activity Detail Author Start: 08-06-2025 Celiac disease screen [facility] Patient Education ED Eye Contusion [facility] Work Phone: Patient referral [facility] Work Phone: Immunizations Immunization Date Immunization Notes Care Provider Fa [facility] 08-24-2024 influenza, seasonal, injectable, preservative free Dr. Chris Khoury MD Work Phone: [facility] 08-29-2023 influenza, injectabl e, quadrivalent, preservative free Dr. Magalys Adan Work Phone: [facility] 10-01-2022 tetanus toxoid, redu kanu diphtheria toxoid, and acellular pertussis vaccine, adsorbed Dr. Magalys Adan Work Phone: [facility] 08-03-2022 influenza, injectabl e, quadrivalent, preservative free [facility] 08-03-2022 influenza, seasonal, injectable Dr. Magalys Adan Work Phone: [facility] 08-01-2021 influenza, injectabl e, quadrivalent, preservative free [facility] 08-01-2021 influenza, seasonal, injectable Dr. Magalys Adan Work Phone: [facility] 11-30-2020 Covid (Moderna) Dr. Magalys lang Work Phone: [facility] 11-02-2020 Martin (Moderna) Dr. Magalys lang Work Phone: [facility] 08-22-2020 influenza, injectabl e, quadrivalent, preservative free [facility] 08-22-2020 influenza, seasonal, injectable Dr. Magalys Adan Work Phone: [facility] 07-30-2019 influenza, injectabl e, quadrivalent, preservative free [facility] 07-30-2019 influenza, seasonal, injectable Dr. Magalys Adan Work Phone: [facility] 09-08-2018 influenza, injectabl e, quadrivalent, preservative free [facility] 09-08-2018 influenza, seasonal, injectable Dr. Magalys Adan Work Phone: [facility] 08-09-2017 influenza, injectabl e, quadrivalent, preservative free [facility] 08-09-2017 influenza, seasonal, injectable Dr. Magalys Adan Work Phone: [facility] 09-24-2016 influenza, injectabl e, quadrivalent, preservative free [facility] 09-24-2016 influenza, seasonal, injectable Dr. Magalys Adan Work Phone: [facility] 08-18-2015 influenza, injectabl e, quadrivalent, preservative free [facility] 08-18-2015 influenza, seasonal, injectable Dr. Magalys Adan Work Phone: [facility] Payers Date Payer Category Payer Unknown [id number] 2025 Self-pay [id number] Unknown [id number] Unknown [id number] [id number] Unknown [id number] Unknown [id number] Unknown [id number] [id number] Unknown [id number] [id number] [id number] Social History Date Type Detail Facility Start: 10-01-2022 End: 12-12-2023 Tobacco smoking status NHIS Unknown if ever smoked [facility] Start: 1980 Sex Assigned At Female [facility] Start: 12-30-2014 None [facility] Start: 12-30-2014 Spouse/ Signif icant Other [facility] Start: 12-30-2014 Non-smoker [facility] Start: 12-12-2023 Tobacco smoking status NHIS Never smoked tobacco (finding) [facility] Sex Female [facility] NEGATED: Highlighted row [facility] Work Phone: NEGATED: Highlighted row [facility] Evaluation note 08-06-2025 Note Date & Type Note Facility 08-06-2025 Evaluation note Diagnosis Onset Date Resolution Bloating acute August 06 2:10pm GERD (gastroesophageal reflux disease) acute August 06 2:10pm Screen for colon cancer acute August 06 2:10pm [facility] Work Phone: Chief complaint+Reason for visit Narrative Note Date & Type Note Facility Chief complaint+Reason for visit Narrative Reason for Visit Encounter for routin e gynecological examination [facility] Work Phone: Evaluation note Note Date & Type Note Facility Evaluation note No assessment information availa ble [facility] Work Phone: Evaluation note Note Date & Type Note Facility Evaluation note Diagnosis Onset Date Encounter for routine gyneco logical examination noneactive [facility] Work Phone: Evaluation note Note Date & Type Note Facility Evaluation note Diagnosis Onset Date Resolution GERD (gastroesophageal reflux disease) acute August 06 2:10pm [facility] Work Phone: Hospital Discharge instructions Note Date & Type Note Facility Hospital Discharge instructions Additional Instructions Use the antibiotic ointment thin ribbon to your right eye 3 times daily for the next [address] 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 Reason for Visit Encounter for routin e gynecological examination Chief Complaint Admit Date EMPLOYEE LABS June 29, 2025 10 :38am SCREENING July 27, 2025 2:44pm possible egd August 06, 2025 2: 10pm Reason for Visit Admit Date GERD (gastroesophageal reflux disease) O ctober 2024 2:10pm Reason for Visit Admit Date Bloating August 06, 2025 2: 10pm GERD (gastroesophageal reflux disease) O ctober 2024 2:10pm Screen for colon cancer August 06 2:10pm Family History No Family History Records Found Relationship Condition Age at Onset Recorded Date/T gustavo Unknown Family History?No pe rtinent history Unknown December 30, 2014 3:12pm Family History?No pe rtinent history Unknown December 30, 2014 3:12pm Relationship Condition Age at Onset Recorded Date/T gustavo Unknown Family History?No pe rtinent history Unknown December 30, 2014 4:12pm Family History?No pe rtinent history Unknown December 30, 2014 4:12pm Relationship Condition Age at Onset Recorded Date/T gustavo father Malignant neoplasm of urinary bladder [place] Advance Directives No Advanced Directives Records Found Advance Directive Response Recorded Date/ Time Advance Directives No December 9:27pm Living Will No October 01, 2 022 11:22pm Power of State Epidemiologist No October 01, 2022 11:22pm Advance Directive Response Recorded Date/ Time Advance Directives No December 10:27pm Living Will No October 02 12:22am Power of State Epidemiologist No October 02, 2022 12:22am Advance Directive Response Recorded Date/ Time Advance Directives No December 10:27pm Summary Purpose Additional Source Comments Goals (unrecognized section and content) Goals may be documented in a n alternate sectionGoals may be documented in an alternate sectionGoals may be documented in an alternate sectionGoals may be documented in an alternate sectionGoals may be documented in an alternate sectionGoals may be documented in an alternate sectionGoals may be documented in an alternate sectionGoals may be documented in an alternate section Care Teams (unrecognized sec tion and content) Team Status: Active Member Role Status Dates Dr. Magalys Adan MD Family Provider Active Dr. Magalys Adan MD Primary Care Provider Active Team Status: Inactive Member Role Status Dates Dr. Magalys Adan MD Primary Care Provider, Referrin g Provider Active Dr. Mary Ellen Chavez MD Attending Provider Active Team Status: Inactive Member Role Status Dates Dr. Magalys Adan MD Primary Care Provider, Referrin g Provider Active Talon Murray PA, PA Attending Provider Active Team Status: Inactive Member Role Status Dates Dr. Magalys Adan MD Primary Care Provider Active Dr. Levon Bowman MD Attending Provider, Emergency Provider Active Team Status: Inactive Member Role Status Dates Dr. Magalys Adan MD Primary Care Provider Active Dr. Mary Ellen Chavez MD Attending Provider, Referr ing Provider Active Team Status: Inactive Member Role Status Dates Dr. Magalys Adan MD Primary Care Provider, Attendin g Provider Active Team Status: Active Member Role Status Dates Dr. Magalys Adan MD Primary Care Provider Active Health Risk Assessment Attending Provider, Referring P zaki Active Team Status: Inactive Member Role Status Dates Dr. Magalys Adan MD Primary Care Prov ider, Attending Provider, Referring Provider Active Team Status: Active Member Role Status Dates Dr. Magalys Adan MD Primary Care Prov ider, Attending Provider, Referring Provider Active Team Status: Active Member Role/Relationship Status Dates Dr. Chris Khoury MD Primary care physician Active Team Status: Active Member Role/Relationship Status Dates Dr. Chris Khoury MD Primary care physician Active Start: June 29, 2025 Health Risk Assessment Attending physician Active Start: June 29, 2025 Health Risk Assessment Referring Provider Active Start: June 29, 2025 Team Status: Active Member Role/Relationship Status Dates Dr. Chris Khoury MD Primary care physician Active Start: July 27, 2025 Amy Guzman NP, NP-C Attending physician Active Start: July 27, 2025 Amy Guzman NP, NP-C Referring Provider Active S tart: July 27, 2025 Team Status: Inactive Member Role/Relationship Status Dates Dr. Chris Khoury MD Primary care physician Active Start: August 06, 2025 End: August 06, 2025 Dr. Chris Khoury MD Referring Provider Active Start: August 06, 2025 End: August 06, 2025 GUNNER Salmon Attending physician Active Start: August 06, 2025 End: August 06, 2025 Team Status: Inactive Member Role/Relationship Status Dates Dr. Chris Khoury MD Primary care physician Active Start: July 27, 2025 End: July 27, 2025 ANAY Cross NP Attending physician Active Start: July 27, 2025 End: July 27, 2025 Amy Guzman NP, NP-C Referring Provider Active S tart: July 27, 2025 End: July 27, 2025 INFORMATION SOURCE (unrecogn ized section and content) DATE CREATED AUTHOR 08/28/2025 [facility] FOR RECORDS PERTAINING TO PATIENTS WHO ARE OR HAVE BEEN ENROLLED IN A CHEMICAL DEPENDENCY/SUBSTANCEABUSE PROGRAM, SOME INFORMATION MAY BE OMITTED. This clinical summary was aggregated from multiple sources. Caution should be exercised in using it in the provision of clinical care. This summary normalizes information from multiple sources, and as a consequence, information in this document may materially change the coding, format and clinical context of patient data. In addition, data may be omitted in some cases. CLINICAL DECISIONS SHOULD BE BASED ON THE PRIMARY CLINICAL RECORDS. [employer] provides no warranty or guarantee of the accuracy or completeness of information in this document.
[2025-08-31] MEDS: Lactated Ringers 1,000 ML 15 ML IV (06:08)
[2025-08-31 06:14] LABS: Internal QC Validated? YES +Cl - CLEAR BKGD; Pregnancy, Urine Negative Negative; Record Kit Lot#,Urine Preg 0000980607
--- NOTE | 2025-08-31 06:22 | PCM.PRE.AN2 ---
ASA Classification* ASA Classification ASA Classification: 2 Assessment & Plan Anesthesia* Anesthesia Assessment Anesthesia Assessment: Discussed sedation and/or anesthesia options, risks, benefits, and alternatives with patient/parents/legal guardian/POA. Questions invited. The patient/parents/legal guardian/POA seems to understand and agrees to proceed with anesthesia plan. Reviewed the physical assessment, medical history, allergy history and patient home medications list prior to surgery/procedure/anesthetic and documented any changes. Performed airway and anesthesia risk assessments. Anesthesia Type Anesthesia Type: MAC History Source History Obtained from:: Patient and Chart Anesthesia Focused Assessment* Temperature: 97.5 F Pulse Rate: 78 Blood Pressure: 106/73 Respiratory Rate: 16 Pulse Ox: 99 Oxygen Delivery Method: Room Air Airway Assessment Mouth opens: >3 cm Mallampati Score: II Teeth Condition: Intact Neck Range of motion (ROM): Full ROM Labs Anesthesia Preop lab: CBC WBC, (4.4-11.0) 6.5 K/mm3 06/29/25, 10:40 RBC, (4.2-5.4) 4.77 M/mm3 06/29/25, 10:40 Hgb, (12.0-15.0) 13.7 g/dL 06/29/25, 10:40 Hct, (37-47) 40.4 % 06/29/25, 10:40 Plt Count, (150-450) 286 K/mm3 06/29/25, 10:40 CHEMISTRY Potassium, (3.3-5.1) 4.5 mmol/L 06/29/25, 10:40 Sodium, (133-145) 140 mmol/L 06/29/25, 10:40 Phosphorus, (2.7-4.5) 3.0 mg/dL 06/29/25, 10:40 BUN, (4-19) 12 mg/dL 06/29/25, 10:40 Creatinine, (0.70-1.20) 0.68 mg/dL L 06/29/25, 10:40 Glucose, (70-99) 87 mg/dL 06/29/25, 10:40 TSH, (0.358-3.74) 1.55 uIU/mL 03/20/24, 16:36 COAG Urine Test Negative Negative Today, 05:50 Pre-Assessment Diagnosis/Proposed Procedure Planned Operative Procedure(s): EGD/CSCOPE Anesthesia History 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 When Was Last Pacemaker Check QUESTION #4 FULL TEXT: You/Your Family Experience fever (hyperthermia) with Anesthesia Last Oral Intake Last Oral intake: Last Oral Intake NPO since 21:30 08/31/25 05:57 Meds taken in AM with sips of No 08/31/25 05:57 water? 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 Female Yes 08/27/25 14:41 HX of Motion Sickness No 08/27/25 14:41 HX of N/V After Surgery No 08/27/25 14:41 Non-Smoker Yes 08/27/25 14:41 Duration of Surgery greater No 08/27/25 14:41 than 60 minutes Number of Risk Factors 2 08/27/25 14:41 PONV Score Moderate Risk 08/27/25 14:41 Height & Weight Height & Weight: Anesthesia: Height & Weight Height 5 ft 4 in 08/31/25 05:57 Weight: 67 kg 08/31/25 05:57 Body Mass Index (BMI) 25.3 08/31/25 05:57 Respiratory Assessment Respiratory Assessment - knotting machine operator: Respiratory Tract Infection Hx - knotting machine operator Hx Respiratory Tract Infection No 08/27/25 14:41 STOP Sleep Apnea STOP Sleep Apnea - knotting machine operator: STOP Sleep Apnea - knotting machine operator Hx Hypertension No 08/27/25 14:41 Hx Sleep Apnea No 08/27/25 14:41 CPAP No 08/27/25 14:41 BIPAP No 08/27/25 14:41 Do you snore loudly (louder No 08/27/25 14:41 than talking or can be heard Do you often feel tired/ No 08/27/25 14:41 fatigued/ sleepy during daytime? Has anyone observed you stop No 08/27/25 14:41 breathing during sleep? STOP Results Negative 08/27/25 14:41 QUESTION #5 FULL TEXT : Do you snore loudly (louder than talking or can be heard through closed doors)? 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 Specify any problems Hx of Preganancy in last 3 No 08/27/25 14:41 Months Nurse Filling Out Transfusion DSCHRIBER 08/27/25 14:41 & Questions: Date: 08/27/25 08/27/25 14:41 Time: 14:42 08/27/25 14:41 Patient unable to answer at this time (ie. confused, unrespo /Reproduction History /Reproductive History - knotting machine operator: /Reproductive Hx- knotting machine operator Hx Now No 08/27/25 14:41 Gestational Age (in weeks): EDC: Hx Hx Para Hx Section SAB No 08/27/25 14:41 Active Medications Active Medications: Current Medications Generic Name Dose Route Start Last Admin Trade Name Freq PRN Reason Stop Dose Admin Lactated Ringer's 1,000 mls @ 15 mls/hr 08/31/25 06:00 08/31/25 06:08 IV 15 mls/hr .Q48H PHIL Administration PFSH Medical History Wears contact lenses Alcohol use Dietary restriction Non-smoker Hypotension GERD (gastroesophageal reflux disease) Has 2 children Home Medications Medication Instructions Recorded Last Taken Type levonorgestrel (Mirena) 1 insert intrauterine ONCE 08/21/21 Unknown History famotidine 20 mg tablet 10 mg PO QDAY 07/19/25 08/30/25 History linaclotide 72 mcg capsule 72 mcg PO QAM #30 caps 08/24/25 08/29/25 Rx (Linzess) Allergy/AdvReac Type Severity Reaction Status Date / Time gluten AdvReac Intermediate Nausea/Vom/ Verified 08/31/25 05:56 Diarrhea Family History Father Bladder cancer Surgical History H/O breast biopsy History of appendectomy Social History number of children: 2 current occupational status: employed 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
--- NOTE | 2025-08-31 06:30 | COLBX_PTH ---
PATIENT: JOSEFINA VAZ LOC: [facility] U#:[id number] AGE/SX: 44/F ROOM: RE08/31/[address]: Dr. Fadi Carrizales DO : 1980 BED: DIS: 08/31/2025 SPEC #: [id number] RECD: 08/31/25 08:54 STATUS: CEDRIC REPeggy #: [id number] RENE: 08/31/25 06:[address]: Fadi Carrizales DEPT: SURGICAL PATHOLOGY RECD BY: Ruben Voss ENTERED: 08/31/25 11:30 SP TYPE: COLON BX OTHR DR: Dr. Chris Khoury MD Tissues: A - Duodenum, NOS B - Gastric mucous membrane C - Gastric mucous membrane D - Esophagus, NOS E - Ileum, NOS F - Sigmoid colon biopsy Procedures: Immunohistochemical Stains Surgery Specimen Level IV HEADER OPERATION: Colonoscopy, EGD, biopsy PRE-OP DIAGNOSIS: GERD, bloating, screen for colon cancer TISSUE SUBMITTED: A- Duodenum biopsy, B- Antrum biopsy, C- Gastric body biopsy, D- Distal esophagus biopsy, E- Terminal ileum biopsy, F- Sigmoid biopsy MICROSCOPIC DIAGNOSIS A. Duodenum, biopsy: - Normal villous architecture with mild intraepithelial lymphocytosis and Elaine gland hyperplasia - see note. Note: This pattern of injury is etiologically nonspecific and the differential diagnosis includes sensitivity to gluten and non-gluten proteins, small intestinal bacterial overgrowth, stasis related changes, infection, protein calorie malnutrition, tropical sprue, and medication injury (NSAIDs, Olmesartan / Benicar, Mycophenolic acid, Idelalisib, for example). If celiac disease is a clinical concern, additional clinical studies, such as tTG-IgA, are recommended. B. Antrum, biopsy: - Oxyntic and antral mucosa with features of reactive gastropathy. - IHC negative for H. pylori organisms. C. Gastric body, biopsy: - Oxyntic mucosa with features of reactive gastropathy. D. Distal esophagus, biopsy: - Squamous mucosa with reactive changes. - Columnar mucosa negative for goblet cell metaplasia. E. Terminal ileum, biopsy: - No specific pathologic change. F. Sigmoid colon, biopsy: - Mild lamina propria edema. - No significant inflammation. MICROSCOPIC DESCRIPTION Slides are reviewed. All matched controls reacted appropriately. These tests were developed and their performance characteristics determined by [facility]. They may not have been cleared or approved by the U.S. Food and Drug Administration. The FDA has determined that such clearance or approval is not necessary. The above immunohistochemical markers and/or special stains have been reviewed by the Pathologist. GROSS DESCRIPTION A. Received in fixative is one container labeled with the patient's name and designated "Duodenum biopsy." The specimen consists of two irregular fragments of barton tissue, each measuring 0.5 cm. The specimen is totally submitted in one cassette. B. Received in fixative is one container labeled with the patient's name and designated "Antrum biopsy." The specimen consists of two irregular fragments of barton tissue that measure 0.4 and 0.6 cm. The specimen is totally submitted in one cassette. C. Received in fixative is one container labeled with the patient's name and designated "Gastric body biopsy." The specimen consists of two irregular fragments of barton tissue that measure 0.2 and 0.8 cm. The specimen is totally submitted in one cassette. D. Received in fixative is one container labeled with the patient's name and designated "Distal esophagus biopsy." The specimen consists of multiple irregular fragments of barton tissue that in aggregate measure 0.8 x 0.4 x 0.1 cm. The specimen is totally submitted in one cassette. E. Received in fixative is one container labeled with the patient's name and designated "Terminal ileum biopsy." The specimen consists of two irregular fragments of barton tissue, each measuring 0.4 cm. The specimen is totally submitted in one cassette. F. Received in fixative is one container labeled with the patient's name and designated "Sigmoid biopsy." The specimen consists of two irregular fragments of barton tissue, each measuring 0.4 cm. The specimen is totally submitted in one cassette. AK 08/31/2025 CPT:[id number]
--- NOTE | 2025-08-31 06:32 | PCM.PRE.AN2 ---
ASA Classification* ASA Classification ASA Classification: 2 Assessment & Plan Anesthesia* Anesthesia Assessment Anesthesia Assessment: Discussed sedation and/or anesthesia options, risks, benefits, and alternatives with patient/parents/legal guardian/POA. Questions invited. The patient/parents/legal guardian/POA seems to understand and agrees to proceed with anesthesia plan. Reviewed the physical assessment, medical history, allergy history and patient home medications list prior to surgery/procedure/anesthetic and documented any changes. Performed airway and anesthesia risk assessments. Anesthesia Type Anesthesia Type: MAC History Source History Obtained from:: Patient and Chart Anesthesia Focused Assessment* Temperature: 97.5 F Pulse Rate: 78 Blood Pressure: 106/73 Respiratory Rate: 16 Pulse Ox: 99 Airway Assessment Mouth opens: >3 cm Mallampati Score: II Teeth Condition: Intact Neck Range of motion (ROM): Full ROM Labs Anesthesia Preop lab: CBC WBC, (4.4-11.0) 6.5 K/mm3 06/29/25, 10:40 RBC, (4.2-5.4) 4.77 M/mm3 06/29/25, 10:40 Hgb, (12.0-15.0) 13.7 g/dL 06/29/25, 10:40 Hct, (37-47) 40.4 % 06/29/25, 10:40 Plt Count, (150-450) 286 K/mm3 06/29/25, 10:40 CHEMISTRY Potassium, (3.3-5.1) 4.5 mmol/L 06/29/25, 10:40 Sodium, (133-145) 140 mmol/L 06/29/25, 10:40 Phosphorus, (2.7-4.5) 3.0 mg/dL 06/29/25, 10:40 BUN, (4-19) 12 mg/dL 06/29/25, 10:40 Creatinine, (0.70-1.20) 0.68 mg/dL L 06/29/25, 10:40 Glucose, (70-99) 87 mg/dL 06/29/25, 10:40 TSH, (0.358-3.74) 1.55 uIU/mL 03/20/24, 16:36 COAG Urine Test Negative Negative Today, 05:50 Pre-Assessment Diagnosis/Proposed Procedure Planned Operative Procedure(s): EGD/CSCOPE Anesthesia History 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 When Was Last Pacemaker Check QUESTION #4 FULL TEXT: You/Your Family Experience fever (hyperthermia) with Anesthesia Last Oral Intake Last Oral intake: Last Oral Intake NPO since 21:30 08/31/25 05:57 Meds taken in AM with sips of No 08/31/25 05:57 water? 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 - show design supervisor: PONV - show design supervisor Female Yes 08/27/25 14:41 HX of Motion Sickness No 08/27/25 14:41 HX of N/V After Surgery No 08/27/25 14:41 Non-Smoker Yes 08/27/25 14:41 Duration of Surgery greater No 08/27/25 14:41 than 60 minutes Number of Risk Factors 2 08/27/25 14:41 PONV Score Moderate Risk 08/27/25 14:41 Height & Weight Height & Weight: Anesthesia: Height & Weight Height 5 ft 4 in 08/31/25 05:57 Weight: 67 kg 08/31/25 05:57 Body Mass Index (BMI) 25.3 08/31/25 05:57 Respiratory Assessment Respiratory Assessment - show design supervisor: Respiratory Tract Infection Hx - show design supervisor Hx Respiratory Tract Infection No 08/27/25 14:41 STOP Sleep Apnea STOP Sleep Apnea - show design supervisor: STOP Sleep Apnea - show design supervisor Hx Hypertension No 08/27/25 14:41 Hx Sleep Apnea No 08/27/25 14:41 CPAP No 08/27/25 14:41 BIPAP No 08/27/25 14:41 Do you snore loudly (louder No 08/27/25 14:41 than talking or can be heard Do you often feel tired/ No 08/27/25 14:41 fatigued/ sleepy during daytime? Has anyone observed you stop No 08/27/25 14:41 breathing during sleep? STOP Results Negative 08/27/25 14:41 QUESTION #5 FULL TEXT : Do you snore loudly (louder than talking or can be heard through closed doors)? 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 Specify any problems Hx of Preganancy in last 3 No 08/27/25 14:41 Months Nurse Filling Out Transfusion DSCHRIBER 08/27/25 14:41 & Questions: Date: 08/27/25 08/27/25 14:41 Time: 14:42 08/27/25 14:41 Patient unable to answer at this time (ie. confused, unrespo /Reproduction History /Reproductive History - show design supervisor: /Reproductive Hx- show design supervisor Hx Now No 08/27/25 14:41 Gestational Age (in weeks): EDC: Hx Hx Para Hx Section SAB No 08/27/25 14:41 Active Medications Active Medications: Current Medications Generic Name Dose Route Start Last Admin Trade Name Freq PRN Reason Stop Dose Admin Lactated Ringer's 1,000 mls @ 15 mls/hr 08/31/25 06:00 08/31/25 06:08 IV 15 mls/hr .Q48H PHIL Administration PFSH Medical History Wears contact lenses Alcohol use Dietary restriction Non-smoker Hypotension GERD (gastroesophageal reflux disease) Has 2 children Home Medications Medication Instructions Recorded Last Taken Type levonorgestrel (Mirena) 1 insert intrauterine ONCE 08/21/21 Unknown History famotidine 20 mg tablet 10 mg PO QDAY 07/19/25 08/30/25 History linaclotide 72 mcg capsule 72 mcg PO QAM #30 caps 08/24/25 08/29/25 Rx (Linzess) Allergy/AdvReac Type Severity Reaction Status Date / Time gluten AdvReac Intermediate Nausea/Vom/ Verified 08/31/25 05:56 Diarrhea Family History Father Bladder cancer Surgical History H/O breast biopsy History of appendectomy Social History number of children: 2 current occupational status: employed 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
--- NOTE | 2025-08-31 06:32 | PCM.HP.STD ---
[facility] - General General Date of Admission: 08/31/25 Date of Service: 08/31/25 Chief Complaint: Bloating and screening colonoscopy HPI Narrative MARA VAZ, is a 44 F who presents [Chief Complaint: Abdominal bloating Patient here today for evaluation of her GI symptoms. Patient has heartburn, bloating and constipation. Symptoms started back in 2019 with heartburn and she was started on famotidine daily which helped however last summer her symptoms became worse. She has significant bloating after eating anything with gluten in it. For the most part she avoids all gluten containing foods. She has never been tested for celiac disease. Patient has had constipation since high school. She takes MiraLAX daily which allows her to have a bowel movement daily or every other day. If patient was not taking MiraLAX she thinks she may have a bowel movement once per week. She has never had a colonoscopy or EGD before. [facility] Medical History Wears contact lenses Alcohol use Dietary restriction Non-smoker Hypotension GERD (gastroesophageal reflux disease) Has 2 children Home Medications Medication Instructions Recorded Last Taken Type levonorgestrel (Mirena) 1 insert intrauterine ONCE 08/21/21 Unknown History famotidine 20 mg tablet 10 mg PO QDAY 07/19/25 08/30/25 History linaclotide 72 mcg capsule 72 mcg PO QAM #30 caps 08/24/25 08/29/25 Rx (Linzess) Allergy/AdvReac Type Severity Reaction Status Date / Time gluten AdvReac Intermediate Nausea/Vom/ Verified 08/31/25 05:56 Diarrhea Family History Father Bladder cancer Surgical History H/O breast biopsy History of appendectomy Social History number of children: 2 current occupational status: employed 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 Smoking Status: Never smoker alcohol intake: current alcohol intake frequency: holidays/special occasions only substance use type: does not use caffeine: No what type of physical activity do you participate in: none seatbelt use: always do you feel safe at home: Yes 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[employer] ROS Constitutional Constitutional: Denies fatigue, fever(s), poor appetite, weight gain or weight loss Gastrointestinal Gastrointestinal: Denies belching, bloating, change in bowel habits, change in stool character, chewing difficulty, coffee ground emesis, constipation, cramping, diarrhea, dyspepsia, dysphagia, early satiety, excessive flatus, fecal incontinence, heartburn, hematemesis, hematochezia, hemorrhoids, loose stools, melena, nausea, odynophagia, rectal bleeding, tenesmus, vomiting or weight changes Vital Signs Vital Signs Vital Signs: 08/31/25 05:57 08/31/25 05:57 08/31/25 06:23 Temperature 97.5 F L 97.5 F L Temperature Source Temporal Pulse Rate 78 78 Respiratory Rate 16 16 Respiratory Pattern Normal Blood Pressure 106/73 106/73 Blood Pressure Mean 84 Blood Pressure Source Monitor Blood Pressure Position Semi-Fowlers Blood Pressure Location Left Arm Pulse Ox 99 99 Oxygen Delivery Method Room Air Room Air Weight Weight: 147 lb 11.355 oz Body Mass Index (BMI) 25.3 Physical Exam Const alert, oriented x3, no apparent distress and healthy appearing General Appearance: cooperative GI normal to inspection, nondistended, normoactive bowel sounds, soft to palpation, non-tender and non-distended Percussion: normal to percussion Rectal Exam: deferred Results Lab / Micro Data Labs: Laboratory Results - last 24 hr 08/31/25 05:50: Urine Test Negative Assessment & Plan Assessment/Plan (1) Screen for colon cancer: (2) Bloating: (3) GERD (gastroesophageal reflux disease): PLAN: Assessment and Plan Assessment and Plan (1) GERD (gastroesophageal reflux disease): Status: Acute Plan: Mara is a 44-year-old female patient here today for evaluation of bloating, heartburn and constipation. She has had heartburn since 2019 but it worsened last summer. She takes famotidine as needed for control of this but has never been on a PPI. Patient's bloating is typically associated with eating gluten. She eats mostly gluten-free diet at this point. Will order celiac panel and she will have EGD with biopsy. I did advise that she will need to eat gluten for either these tests to be accurate. Patient has had constipation since high school and takes MiraLAX daily. Patient has never had a screening colonoscopy and will be scheduled for this with her EGD. I have provided samples of Linzess 72 mcg daily for her to trial. If patient has good results will send prescription. - EGD with biopsy for possible celiac disease - Screening colonoscopy - Trial Linzess 72 mcg daily - Follow-up after procedures Note: [employer] speech recognition asset protection officer software was used to create portions of this document. Sound-alike and misspelled words, as well as other asset protection officer errors may be contained in the documentation. (2) Bloating: Status: Acute (3) Screen for colon cancer: Status: Acute Orders: Orders Celiac Disease Profile Today K21.9 - Gastro-esophageal reflux disease without esophagitis Medications: New peg 3350-electrolytes 236-22.74-6.74 -5.86 gram (Golytely) until fecal effluent is clear 240 mL PO Q10M 4,000 mL 0RF ]
[2025-08-31] MEDS: Lidocaine 1% (5 ml sdv) 5 ML Vial IV (06:40)
--- NOTE | 2025-08-31 07:18 | OP.PROVAT_ITS ---
08/31/2025 Chris Khoury [address] [place] [address] Re : Upper GI endoscopy procedure for Mara White Dear Dr. Khoury This procedure was performed on Sunday, August 31, 2025. My impressions and recommendations are as follows: Impressions : - Esophageal mucosal changes suggestive of eosinophilic esophagitis. - Mild Schatzki ring. - Small hiatal hernia. - Erythematous mucosa in the gastric body and antrum. Biopsied. - No gross lesions in the entire examined duodenum. Biopsied. - Biopsies were taken with a cold forceps for evaluation of eosinophilic esophagitis. Recommendations : - Discharge patient to home. - Resume previous diet. - Continue present medications. - Await pathology results. My findings are described in the full procedure note, which is enclosed. If I can be of further assistance, please feel free to contact me at . Sincerely, Fadi Carrizales, 08/31/2025 7:16:56 AM This report has been signed electronically.
--- NOTE | 2025-08-31 07:18 | OP.EGD_ITS ---
Patient Name: Mara White Procedure Date: 08/31/2025 6:15 AM Date of : 1980 Age: 44 Procedure: Upper GI endoscopy Indications: Epigastric abdominal pain, Heartburn Providers: Fadi Crarizales DO Referring MD: Chris Khoury Medicines: Monitored Anesthesia Care Patient Profile: This is a 44 year old female. Refer to note in patient chart for documentation of history and physical. Patient has symptoms of chronic abdominal distention, chronic dyspepsia and chronic heartburn. Complications: No immediate complications. Procedure: Pre-Anesthesia Assessment: - Prior to the procedure, a History and Physical was performed, and patient medications and allergies were reviewed. The patient is competent. The risks and benefits of the procedure and the sedation options and risks were discussed with the patient. All questions were answered and informed consent was obtained. Patient identification and proposed procedure were verified by the physician in the pre-procedure area. Mental Status Examination: alert and oriented. Airway Examination: normal oropharyngeal airway and neck mobility. Respiratory Examination: clear to auscultation. CV Examination: normal. Prophylactic Antibiotics: The patient does not require prophylactic antibiotics. Prior Anticoagulants: The patient has taken no anticoagulant or antiplatelet agents. ASA Grade Assessment: II - A patient with mild systemic disease. After reviewing the risks and benefits, the patient was deemed in satisfactory condition to undergo the procedure. The anesthesia plan was to use monitored anesthesia care (MAC). Immediately prior to administration of medications, the patient was re-assessed for adequacy to receive sedatives. The heart rate, respiratory rate, oxygen saturations, blood pressure, adequacy of pulmonary ventilation, and response to care were monitored throughout the procedure. The physical status of the patient was re-assessed after the procedure. After obtaining informed consent, the endoscope was passed under direct vision. Throughout the procedure, the patient's blood pressure, pulse, and oxygen saturations were monitored continuously. The was introduced through the mouth, and advanced to the fourth part of the duodenum. Small bowel enteroscopy was deemed necessary. The upper GI endoscopy was accomplished without difficulty. The patient tolerated the procedure well. Scope In: 6:41:15 AM Scope Out: 6:49:54 AM Total Procedure Duration Time 0 hours 8 minutes 39 seconds Findings: Mucosal changes including ringed esophagus, small-caliber esophagus and congestion (edema) were found in the middle third of the esophagus and in the lower third of the esophagus. Biopsies were obtained from the proximal and distal esophagus with cold forceps for histology of suspected eosinophilic esophagitis. Verification of patient identification for the specimen was done. Estimated blood loss was minimal. A mild Schatzki ring was found at the gastroesophageal junction. A small hiatal hernia was present. Patchy mildly erythematous mucosa without bleeding was found in the gastric body and in the gastric antrum. Biopsies were taken with a cold forceps for histology. Biopsies were taken with a cold forceps for Helicobacter pylori testing. Verification of patient identification for the specimen was done. Estimated blood loss was minimal. No gross lesions were noted in the entire examined duodenum. Biopsies were taken with a cold forceps for histology. Verification of patient identification for the specimen was done. Estimated blood loss was minimal. Impression: - Esophageal mucosal changes suggestive of eosinophilic esophagitis. - Mild Schatzki ring. - Small hiatal hernia. - Erythematous mucosa in the gastric body and antrum. Biopsied. - No gross lesions in the entire examined duodenum. Biopsied. - Biopsies were taken with a cold forceps for evaluation of eosinophilic esophagitis. Recommendation: - Discharge patient to home. - Resume previous diet. - Continue present medications. - Await pathology results. Procedure Code(s): --- Professional --- 15186, Small intestinal endoscopy, enteroscopy beyond second portion of duodenum, not including ileum; with biopsy, single or multiple CPT copyright 2021 [employer]. All rights reserved. The codes documented in this report are preliminary and upon amusement ride operator review may be revised to meet current compliance requirements. Fadi Carrizales DO 08/31/2025 7:16:56 AM This report has been signed electronically. Number of Addenda: 0 Note Initiated On: 08/31/2025 6:15 AM
--- NOTE | 2025-08-31 07:20 | OP.PROVAT_ITS ---
08/31/2025 Chris Khoury [address] [place] [address] Re : Colonoscopy procedure for Mara White Dear Dr. Khoury This procedure was performed on Sunday, August 31, 2025. My impressions and recommendations are as follows: Impressions : - Significant colonic spasm consistent with irritable bowel syndrome. - Erythematous mucosa in the sigmoid colon. Biopsied. - The examined portion of the ileum was normal. Biopsied. - The examination was otherwise normal on direct and retroflexion views. Recommendations : - Discharge patient to home. - Resume previous diet. - Continue present medications. - Await pathology results. - Repeat colonoscopy in 10 years for screening purposes. My findings are described in the full procedure note, which is enclosed. If I can be of further assistance, please feel free to contact me at . Sincerely, Fadi Carrizales, 08/31/2025 7:20:07 AM This report has been signed electronically.
--- NOTE | 2025-08-31 07:20 | OP.COLON_ITS ---
Patient Name: Mara White Procedure Date: 08/31/2025 6:50 AM Date of : 1980 Age: 44 Procedure: Colonoscopy Indications: Screening for colorectal malignant neoplasm Providers: Fadi Carrizales DO Referring MD: Chris Khoury Medicines: Monitored Anesthesia Care Patient Profile: This is a 44 year old female. Refer to note in patient chart for documentation of history and physical. Patient has symptoms of chronic abdominal distention, chronic dyspepsia and chronic heartburn. Last Colonoscopy: none. The patient's first colonoscopy is today. Complications: No immediate complications. Procedure: Pre-Anesthesia Assessment: - Prior to the procedure, a History and Physical was performed, and patient medications and allergies were reviewed. The patient is competent. The risks and benefits of the procedure and the sedation options and risks were discussed with the patient. All questions were answered and informed consent was obtained. Patient identification and proposed procedure were verified by the physician in the pre-procedure area. Mental Status Examination: alert and oriented. Airway Examination: normal oropharyngeal airway and neck mobility. Respiratory Examination: clear to auscultation. CV Examination: normal. Prophylactic Antibiotics: The patient does not require prophylactic antibiotics. Prior Anticoagulants: The patient has taken no anticoagulant or antiplatelet agents. ASA Grade Assessment: II - A patient with mild systemic disease. After reviewing the risks and benefits, the patient was deemed in satisfactory condition to undergo the procedure. The anesthesia plan was to use monitored anesthesia care (MAC). Immediately prior to administration of medications, the patient was re-assessed for adequacy to receive sedatives. The heart rate, respiratory rate, oxygen saturations, blood pressure, adequacy of pulmonary ventilation, and response to care were monitored throughout the procedure. The physical status of the patient was re-assessed after the procedure. After I obtained informed consent, the scope was passed under direct vision. Throughout the procedure, the patient's blood pressure, pulse, and oxygen saturations were monitored continuously. The was introduced through the anus and advanced to the terminal ileum. The colonoscopy was performed without difficulty. The patient tolerated the procedure well. The quality of the bowel preparation was adequate. The terminal ileum, ileocecal valve, appendiceal orifice, and rectum were photographed. Scope In: 6:52:34 AM Scope Withdrawal Time 0 hours 10 minutes 4 seconds Scope Out: 7:10:36 AM Total Procedure Duration Time 0 hours 18 minutes 2 seconds Findings: The perianal and digital rectal examinations were normal. There was significant spasm in the recto-sigmoid colon, in the sigmoid colon and in the descending colon. A localized area of mildly erythematous mucosa was found in the sigmoid colon. Biopsies were taken with a cold forceps for histology. Verification of patient identification for the specimen was done. Estimated blood loss was minimal. The terminal ileum appeared normal. Biopsies were taken with a cold forceps for histology. Verification of patient identification for the specimen was done. Estimated blood loss was minimal. The exam was otherwise without abnormality on direct and retroflexion views. Impression: - Significant colonic spasm consistent with irritable bowel syndrome. - Erythematous mucosa in the sigmoid colon. Biopsied. - The examined portion of the ileum was normal. Biopsied. - The examination was otherwise normal on direct and retroflexion views. Recommendation: - Discharge patient to home. - Resume previous diet. - Continue present medications. - Await pathology results. - Repeat colonoscopy in 10 years for screening purposes. Procedure Code(s): --- Professional --- 55963, Colonoscopy, flexible; with biopsy, single or multiple CPT copyright 2021 [employer]. All rights reserved. The codes documented in this report are preliminary and upon certified medical records coder review may be revised to meet current compliance requirements. Fadi Carrizales DO 08/31/2025 7:20:07 AM This report has been signed electronically. Number of Addenda: 0 Note Initiated On: 08/31/2025 6:50 AM
--- NOTE | 2025-08-31 07:29 | PCM.POST.ANE ---
Anesthesia: Postop Eval I Current Vital Signs Temperature: 97.3 F Pulse Rate: 89 Blood Pressure: 84/70 Respiratory Rate: 16 Pulse Ox: 100 Oxygen Delivery Method: Room Air Assessment Airway patent: Yes Spontaneous unlabored respirations: Yes Mental status: Awake and Calm nausea: No Vomiting: No Anesthesia Complication: No Fluid Hydration Crystalloid volume administer (ml): 800 Total IV fluid infused: 800 Progress Note Anesthesia document: Postop Eval 1 completed: Yes
--- NOTE | 2025-08-31 14:50 | POSTOPAN2_ITS ---
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 [employer] CLIPPINGS.GDOTT Vomiting No 08/31/25 07:29 C[employer]TER AND PASTER [employer] CLIPPINGS.GDOTT Anesthesia Postop Eval I: Fluid Summary Crystalloid volume administer 800 08/31/25 07:29 C[employer] AND PASTER [employer] CLIPPINGS.GDOTT (ml) Colloids volume administered ( ml) Blood Product volume administered (ml) Total IV fluid infused 800 08/31/25 07:29 C[employer] AND PASTER [employer] CLIPPINGS.GDOTT Anesthesia Postop Eval I: Summary Notes Anesthesia Complication No 08/31/25 07:29 C[employer] AND PA[employer] CLIPPINGS.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
--- NOTE | 2025-08-31 14:50 | PCM.POSTANE2 ---
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.GDOTT Anesthesia Postop Eval I: Fluid Summary Crystalloid volume administer 800 08/31/25 07:29 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
== END 2025-08-31 08:15 | disposition home or self-care (01) ==
LOC: EN 05:30 → AC 05:31
PROVIDERS: Anesthesiology; PCP Family Medicine; Referring Provider Family Medicine; Visit Provider Internal Medicine Gastroenterology
PROC: 0DJD8ZZ Inspection of Lower Intestinal Tract, Via Natural or Artificial Opening Endoscopic (ICD-10-PCS; CPT 45378; principal; 2025-08-31 06:25)
DX: Z12.11 Encounter for screening for malignant neoplasm of colon (principal); K44.9 Diaphragmatic hernia without obstruction or gangrene; K58.9 Irritable bowel syndrome, unspecified; R14.0 Abdominal distension (gaseous); Z90.49 Acquired absence of other specified parts of digestive tract; K21.9 Gastro-esophageal reflux disease without esophagitis; Z79.899 Other long term (current) drug therapy; K22.2 Esophageal obstruction; K31.89 Other diseases of stomach and duodenum; K22.89 Other specified disease of esophagus
CPT/HCPCS: 44361; 81025; 88305; 88342; J2405